=== PATIENT | female | born 1950 | race Caucasian/White ===

== ENCOUNTER → 2017-11-05 | Outpatient (CLI) | payer MEDICARE, OTHER ==
[~2017-11-05] MED LIST: ALBU90OI INH; ALPR.5 PO; ALPR1 PO; ATOR20 PO; Acetaminophen-1 EAC1 PO; Antivert25 MG PO; BUPR100ER PO; CEPH500 PO; CIPR500 PO; CITA20 PO; CYCL10 PO; Cymbalta60 MG; DULOXETINE HCL20 MG PO; Desyrel50 MG PO; ESOM20; ESOM20 PO; GABA600; GABA600 PO; HYDR1TAB94 PO; Hydrocodone-Ap1 EA23 PO; IBUP800 PO; LIDO700A20 TOP; MECL25 PO; MELO7.5 PO; METR500 PO; MIRT15 PO; Nexium40 MG PO; Nitrostat0.4 MG SL; Norco 5-325 Ta1 EACH PO; OLME20 PO; OLME5TAB; OLME5TAB PO; OXYACE7.5T MT; PRAHYD1AE TOP; PROC5 PO; PROM25 PO; Phenergan25 M1 PO; Prednisone20 MG PO; Prilosec20 MG PO; SUCR1 PO; SULI150 PO; Seroquel50 MG PO; TRAM50 PO; TRAZ100 PO; TRAZ150T57; TRAZ150T57 PO; Zofran8 MG PO
== END ==
LOC: LAB SRC 12:07
DX: R31.9 Hematuria, unspecified (principal); R30.0 Dysuria
CPT/HCPCS: 87077; 87086; 87186

== ENCOUNTER 2017-11-20 09:20 | Observation (INO) | payer MEDICARE, OTHER ==
[~2017-11-20] VITALS: Ht 165.1 cm; Wt 117.9 kg
[~2017-11-20 09:20] MED LIST changes: -ALPR1 PO; -Acetaminophen-1 EAC1 PO; -BUPR100ER PO; -CIPR500 PO; -Hydrocodone-Ap1 EA23 PO; -METR500 PO; -Seroquel50 MG PO; -TRAM50 PO; -TRAZ150T57 PO
[2017-11-20] MEDS ORDERED: Acetaminophen-1 EAC1 PO (11:02)
[2017-11-20] MEDS ORDERED: TRAM50 PO (11:03)
[2017-11-20] MEDS ORDERED: BUPR100ER PO (11:03)
[2017-11-20 11:55] LABS: Source, Urine Voided
[2017-11-20 12:01] LABS: BASOPHILS ABSOLUTE AUTO 0.03 K/mm3 (0.00-0.23); BASOPHILS PERCENT AUTO 0 % (0-2); EOSINOPHILS ABSOLUTE AUTO 0.09 K/mm3 (0.00-0.68); EOSINOPHILS PERCENT AUTO 1 % (0-6); Hematocrit 40.5 % (33.0-51.0); Hemoglobin 13.5 g/dL (11.5-16.0); IMMATURE GRAN ABSOLUTE AUTO 0.02 K/mm3 (0.00-0.10); IMMATURE GRAN PERCENT AUTO 0 % (0-1); LYMPHOCYTES ABSOLUTE AUTO 1.81 K/mm3 (0.84-5.20); LYMPHOCYTES PERCENT AUTO 27 % (21-46); MONOCYTES PERCENT AUTO 6 % (4-13); Mean Corpuscular HGB 29.2 pg (26.0-34.0); Mean Corpuscular HGB Conc 33.3 g/dL (31.5-36.5); Mean Corpuscular Volume 88 fL (80-100); NEUTROPHILS ABSOLUTE AUTO 4.41 K/mm3 (1.96-9.15); NEUTROPHILS PERCENT AUTO 65 % (41-73); Platelet Count 246 K/mm3 (150-400); RDW Coefficient Variation 14.7 % (11.7-14.2); RDW Standard Deviation 47.2 fL (35.1-46.3); Red Blood Cell Count 4.63 M/mm3 (3.80-5.20); White Blood Cell Count 6.76 K/mm3 (4.00-11.30)
[2017-11-20 12:25] LABS: Alanine Aminotransfer (ALT/SGP 13 U/L (12-78); Albumin, Blood 3.2 g/dL (3.4-5.0); Albumin/Globulin Ratio 0.8 (0.8-1.8); Alk Phos 128 U/L (50-136); Anion Gap 5 mmol/L (6-16); Aspartate Aminotrans (AST/SGOT 12 U/L (12-37); Bilirubin, Total 0.3 mg/dL (0.1-1.0); Blood Urea Nitrogen 10 mg/dL (8-24); Bun/Creatinine Ratio 11.2 (12.0-20.0); CO2, Blood 27 mmol/L (21-32); Chloride, Blood 110 mmol/L (98-108); Creatinine, Blood 0.89 mg/dL (0.40-1.00); Ethanol (Alcohol), Blood, Med <3 mg/dL; Glomerular Filtration Rate >60 (60-); Glucose, Blood 112 mg/dL (70-99); Potassium, Blood 3.5 mmol/L (3.5-5.5); Salicylate 3.3 mg/dL (2.8-20.0); Sodium, Blood 142 mmol/L (136-145); Total Protein, Blood 7.2 g/dL (6.4-8.2)
[2017-11-20 12:30] LABS: Acetaminophen, Random <2.0 ug/mL (10.0-30.0)
[2017-11-20 12:39] LABS: Bilirubin, Urine Neg (Neg); Blood, Urine Neg (Neg); Glucose Qualitative, Urine Neg (Neg); Ketones, Urine 1+ (Neg); Leukocyte Esterase, Urine 3+ (Neg); Nitrite, Urine Neg (Neg); Protein, Urine 1+ (Neg); Urobilinogen, Urine 1+ (Normal)
[2017-11-20 12:53] LABS: U Benzodiazapine Screen DETECTED; U Opiates Screen DETECTED
[2017-11-20 12:54] LABS: U Amphetamine Screen Not Detected; U Barbituate Screen Not Detected; U Buprenorphine Screen Not Detected; U Cannabinoids Screen Not Detected; U Cocaine Screen Not Detected; U Methadone Screen Not Detected; U Methamphetamine Screen Not Detected; U Oxycodone Screen Not Detected; U Phencyclidine Screen Not Detected; U Propoxyphene Screen Not Detected
[2017-11-20 12:55] LABS: Appearance, Urine Clear (Clear); Color, Urine Yellow (P-Yellow)
[2017-11-20 13:00] LABS: Bacteria Mod /hpf; Red Blood Cells, Urine 0-2 /hpf (0-2); Squamous Epithelial Cells Mod /hpf (Few)
[2017-11-20 13:04] LABS: Calcium Oxalate Crystals Mod /hpf
[2017-11-20] MEDS ORDERED: Hydrocodone-Ap1 EA23 PO (15:12)
[2017-11-20] MEDS ORDERED: GABA600 PO (15:13)
[2017-11-20] MEDS ORDERED: ALPR1 PO (15:13)
[2017-11-20] MEDS ORDERED: ATOR20 PO (15:14)
[2017-11-20] MEDS ORDERED: OLME20 PO (15:15)
[2017-11-20] MEDS ORDERED: OLME5TAB PO (15:16)
[2017-11-20] MEDS ORDERED: PROM25 PO (16:05)
[2017-11-20] MEDS ORDERED: TRAZ150T57 PO (16:05)
[2017-11-20] MEDS ORDERED: ESOM20 PO (16:06)
[2017-11-21] MEDS ORDERED: Seroquel50 MG PO (16:55)
== END 2017-11-20 19:09 | disposition home or self-care (01) ==
LOC: ER 09:20 → EOR 09:21
PROVIDERS: Emergency Medicine
DX: F32.9 Major depressive disorder, single episode, unspecified (principal); F43.9 Reaction to severe stress, unspecified; F41.9 Anxiety disorder, unspecified; I10 Essential (primary) hypertension; G89.29 Other chronic pain; K21.9 Gastro-esophageal reflux disease without esophagitis; G47.30 Sleep apnea, unspecified; F17.210 Nicotine dependence, cigarettes, uncomplicated; Z91.5 Personal history of self-harm; Z88.5 Allergy status to narcotic agent; Z60.9 Problem related to social environment, unspecified; Z88.8 Allergy status to other drugs, medicaments and biological substances; Z79.899 Other long term (current) drug therapy
CPT/HCPCS: 36415; 80053; 81001; 81025; 84443; 85025; 87086; 99285; G0378; G0480; Q3014

== ENCOUNTER 2017-11-21 15:06 | Emergency (ER) | payer MEDICARE, OTHER ==
[~2017-11-21] VITALS: Ht 165.1 cm; Wt 72.6 kg
[~2017-11-21 15:06] MED LIST changes: +ALPR1 PO; +Acetaminophen-1 EAC1 PO; +BUPR100ER PO; +Hydrocodone-Ap1 EA23 PO; +TRAM50 PO; +TRAZ150T57 PO
[2017-11-21] MEDS ORDERED: Seroquel50 MG PO (16:55)
== END 2017-11-21 17:13 | disposition home or self-care (01) ==
LOC: ER 15:06
DX: F41.9 Anxiety disorder, unspecified (principal); F43.9 Reaction to severe stress, unspecified; I10 Essential (primary) hypertension; K21.9 Gastro-esophageal reflux disease without esophagitis; F17.210 Nicotine dependence, cigarettes, uncomplicated
CPT/HCPCS: 99283

== ENCOUNTER → 2018-02-22 | Outpatient (CLI) | payer MEDICARE, OTHER ==
[~2018-02-22] MED LIST changes: +Seroquel50 MG PO
== END ==
LOC: LAB SHORT 15:54 → LAB 15:54
DX: N39.0 Urinary tract infection, site not specified (principal)
CPT/HCPCS: 87086

== ENCOUNTER 2018-04-17 11:58 | Emergency (ER) | payer MEDICARE, OTHER ==
[~2018-04-17] VITALS: Ht 165.1 cm; Wt 77.1 kg
[2018-04-17] MEDS ORDERED: CIPR500 PO (12:11)
[2018-04-17] MEDS ORDERED: METR500 PO (12:11)
[2018-04-17 12:24] LABS: BASOPHILS ABSOLUTE AUTO 0.02 K/mm3 (0.00-0.23); BASOPHILS PERCENT AUTO 0 % (0-2); EOSINOPHILS ABSOLUTE AUTO 0.22 K/mm3 (0.00-0.68); EOSINOPHILS PERCENT AUTO 3 % (0-6); Hematocrit 42.5 % (33.0-51.0); Hemoglobin 14.4 g/dL (11.5-16.0); IMMATURE GRAN ABSOLUTE AUTO 0.01 K/mm3 (0.00-0.10); IMMATURE GRAN PERCENT AUTO 0 % (0-1); LYMPHOCYTES ABSOLUTE AUTO 1.94 K/mm3 (0.84-5.20); LYMPHOCYTES PERCENT AUTO 26 % (21-46); MONOCYTES ABSOLUTE AUTO 0.55 K/mm3 (0.16-1.47); MONOCYTES PERCENT AUTO 7 % (4-13); Mean Corpuscular HGB 29.9 pg (26.0-34.0); Mean Corpuscular HGB Conc 33.9 g/dL (31.5-36.5); Mean Corpuscular Volume 88 fL (80-100); Mean Platelet Volume 11.4 fL (9.1-12.4); NEUTROPHILS ABSOLUTE AUTO 4.65 K/mm3 (1.96-9.15); NEUTROPHILS PERCENT AUTO 63 % (41-73); Platelet Count 241 K/mm3 (150-400); RDW Coefficient Variation 14.1 % (11.7-14.2); Red Blood Cell Count 4.82 M/mm3 (3.80-5.20); White Blood Cell Count 7.39 K/mm3 (4.00-11.30)
[2018-04-17 12:40] LABS: Alanine Aminotransfer (ALT/SGP 25 U/L (12-78); Albumin, Blood 3.4 g/dL (3.4-5.0); Albumin/Globulin Ratio 0.8 (0.8-1.8); Alk Phos 146 U/L (50-136); Anion Gap 10 mmol/L (6-16); Aspartate Aminotrans (AST/SGOT 25 U/L (12-37); Bilirubin, Total 0.2 mg/dL (0.1-1.0); Blood Urea Nitrogen 14 mg/dL (8-24); Bun/Creatinine Ratio 18.1 (12.0-20.0); CO2, Blood 22 mmol/L (21-32); Calcium, Blood 8.8 mg/dL (8.5-10.1); Chloride, Blood 112 mmol/L (98-108); Creatinine, Blood 0.78 mg/dL (0.40-1.00); Glomerular Filtration Rate >60 (60-); Glucose, Blood 94 mg/dL (70-99); Potassium, Blood 3.6 mmol/L (3.5-5.5); Sodium, Blood 144 mmol/L (136-145); Total Protein, Blood 7.4 g/dL (6.4-8.2); Troponin I <0.015 ng/mL (0.000-0.040)
== END 2018-04-17 14:55 | disposition home or self-care (01) ==
LOC: ER 11:58
PROVIDERS: Emergency Medicine
DX: R07.9 Chest pain, unspecified (principal); R61 Generalized hyperhidrosis; T37.8X5A Adverse effect of other specified systemic anti-infectives and antiparasitics, initial encounter; K21.9 Gastro-esophageal reflux disease without esophagitis; I10 Essential (primary) hypertension; I25.2 Old myocardial infarction; F17.210 Nicotine dependence, cigarettes, uncomplicated; Z88.8 Allergy status to other drugs, medicaments and biological substances; Z88.5 Allergy status to narcotic agent; Z79.899 Other long term (current) drug therapy
CPT/HCPCS: 71046; 80053; 83690; 84484; 85025; 93005; 93010; 99285-25

== ENCOUNTER → 2018-07-16 | Outpatient (CLI) | payer MEDICARE, OTHER ==
[~2018-07-16] MED LIST changes: +CIPR500 PO; +METR500 PO
== END | disposition home or self-care (01) ==
LOC: LAB EV 08:32 → LAB SHORT 08:32
DX: N39.0 Urinary tract infection, site not specified (principal)
CPT/HCPCS: 87086

== ENCOUNTER → 2018-10-28 | Outpatient (CLI) | payer MEDICARE, OTHER ==
[2018-11-02 07:14] LABS: AMITRIPTYLINE Negative (Cutoff=100); CLOMIPRAMINE Negative (Cutoff=100); CYCLOBENZAPRINE Positive (.); CYCLOBENZAPRINE CONF 108 ng/mL (Cutoff=100); DESIPRAMINE Negative (Cutoff=100); DOXEPIN Negative (Cutoff=100); IMIPRAMINE Negative (Cutoff=100); NORDOXEPIN Negative (Cutoff=100); NORTRIPTYLINE Negative (Cutoff=100); PROTRIPTYLINE Negative (Cutoff=100); TRICYCLIC ANTIDEP Positive ng/mL (Cutoff=100); TRIMIPRAMINE Negative (Cutoff=100)
== END | disposition home or self-care (01) ==
LOC: LAB SHORT 13:16 → LAB 13:16
PROVIDERS: Nurse Practitioner Psychiatric/Mental Health
DX: F34.1 Dysthymic disorder (principal); Z79.899 Other long term (current) drug therapy
CPT/HCPCS: 80369; G0480; G0481

== ENCOUNTER 2019-01-09 09:55 | Emergency (ER) | payer MEDICARE, OTHER ==
[~2019-01-09] VITALS: Ht 165.1 cm; Wt 74.8 kg
[2019-01-09] MEDS ORDERED: TELM40 PO (10:07)
[2019-01-09 10:41] LABS: BASOPHILS ABSOLUTE AUTO 0.03 K/mm3 (0.00-0.23); BASOPHILS PERCENT AUTO 0 % (0-2); EOSINOPHILS ABSOLUTE AUTO 0.12 K/mm3 (0.00-0.68); EOSINOPHILS PERCENT AUTO 2 % (0-6); Hematocrit 46.1 % (33.0-51.0); Hemoglobin 15.2 g/dL (11.5-16.0); IMMATURE GRAN ABSOLUTE AUTO 0.01 K/mm3 (0.00-0.10); IMMATURE GRAN PERCENT AUTO 0 % (0-1); LYMPHOCYTES ABSOLUTE AUTO 2.17 K/mm3 (0.84-5.20); LYMPHOCYTES PERCENT AUTO 31 % (21-46); MONOCYTES PERCENT AUTO 7 % (4-13); Mean Corpuscular HGB 30.2 pg (26.0-34.0); Mean Corpuscular Volume 92 fL (80-100); Mean Platelet Volume 11.9 fL (9.1-12.4); NEUTROPHILS ABSOLUTE AUTO 4.08 K/mm3 (1.96-9.15); NEUTROPHILS PERCENT AUTO 59 % (41-73); Platelet Count 218 K/mm3 (150-400); RDW Coefficient Variation 13.8 % (11.7-14.2); RDW Standard Deviation 46.5 fL (35.1-46.3); Red Blood Cell Count 5.03 M/mm3 (3.80-5.20); White Blood Cell Count 6.91 K/mm3 (4.00-11.30)
[2019-01-09 10:52] LABS: Alanine Aminotransfer (ALT/SGP 20 U/L (12-78); Albumin, Blood 3.5 g/dL (3.4-5.0); Albumin/Globulin Ratio 0.9 (0.8-1.8); Alk Phos 175 U/L (50-136); Anion Gap 6 mmol/L (6-16); Aspartate Aminotrans (AST/SGOT 26 U/L (12-37); Bilirubin, Total 0.4 mg/dL (0.1-1.0); Blood Urea Nitrogen 17 mg/dL (8-24); Bun/Creatinine Ratio 22.4 (12.0-20.0); CO2, Blood 24 mmol/L (21-32); Calcium, Blood 9.1 mg/dL (8.5-10.1); Chloride, Blood 113 mmol/L (98-108); Creatinine, Blood 0.76 mg/dL (0.40-1.00); Globulin, Blood 3.9 g/dL (2.2-4.0); Glomerular Filtration Rate >60 (60-); Glucose, Blood 89 mg/dL (70-99); Potassium, Blood 3.7 mmol/L (3.5-5.5); Sodium, Blood 143 mmol/L (136-145); Total Protein, Blood 7.4 g/dL (6.4-8.2)
[2019-01-09] MEDS ORDERED: Prinivil5 MG PO (11:23)
== END 2019-01-09 11:50 | disposition home or self-care (01) ==
LOC: ER 09:55
PROVIDERS: Emergency Medicine
DX: R42 Dizziness and giddiness (principal); R06.02 Shortness of breath; I10 Essential (primary) hypertension; T46.5X5A Adverse effect of other antihypertensive drugs, initial encounter; K21.9 Gastro-esophageal reflux disease without esophagitis; I25.2 Old myocardial infarction; Z88.5 Allergy status to narcotic agent; Z88.8 Allergy status to other drugs, medicaments and biological substances; Z79.899 Other long term (current) drug therapy; Z79.891 Long term (current) use of opiate analgesic
CPT/HCPCS: 36415; 80053; 84484; 85025; 93005; 93010; 99284-25

== ENCOUNTER → 2020-02-19 | Outpatient (CLI) | payer MEDICARE, OTHER ==
[~2020-02-19] MED LIST changes: +CEFD300 PO; +CEFP200 PO; +CODACE30 PO; +GABA300 PO; +MIRT30ST PO; +ONDA4ODT MM; +Prinivil5 MG PO; +TELM40 PO; +ZOLP5 PO
[2020-02-19 16:28] LABS: Alanine Aminotransfer (ALT/SGP 20 U/L (12-78); Albumin, Blood 3.5 g/dL (3.4-5.0); Albumin/Globulin Ratio 0.9 (0.8-1.8); Alk Phos 158 U/L (50-136); Anion Gap 5 mmol/L (6-16); Aspartate Aminotrans (AST/SGOT 31 U/L (12-37); Bilirubin, Total 0.3 mg/dL (0.1-1.0); Blood Urea Nitrogen 12 mg/dL (8-24); Bun/Creatinine Ratio 13.2 (12.0-20.0); CHOL/HDL RATIO 3.4; CO2, Blood 20 mmol/L (21-32); Chloride, Blood 116 mmol/L (98-108); Cholesterol 170 mg/dL (50-200); Creatinine, Blood 0.91 mg/dL (0.40-1.00); Glomerular Filtration Rate >60 (60-); Glucose, Blood 95 mg/dL (70-99); HDL Cholesterol 50 mg/dL (>39); LDL/HDL RATIO 1.6; Low Density Lipoprotein Chol 81 mg/dL (0-110); Potassium, Blood 4.8 mmol/L (3.5-5.5); Sodium, Blood 141 mmol/L (136-145); Total Protein, Blood 7.5 g/dL (6.4-8.2); Triglycerides 194 mg/dL (30-160); Very Low Density Lipoprot Chol 38 mg/dL (6-32)
== END | disposition home or self-care (01) ==
LOC: LAB SRC 07:33 → LAB SHORT 07:33
PROVIDERS: Nurse Practitioner Family
DX: E78.2 Mixed hyperlipidemia (principal); M25.50 Pain in unspecified joint
CPT/HCPCS: 80053; 80061

== ENCOUNTER 2020-05-16 11:08 | Observation (INO) | payer MEDICARE, OTHER ==
[~2020-05-16] VITALS: Ht 165.1 cm; Wt 72.1 kg
[~2020-05-16 11:08] MED LIST changes: +ALPR.25 PO; +ATORVASTATIN CA40 M1 PO
[2020-05-16 11:29] LABS: BASOPHILS ABSOLUTE AUTO 0.02 K/mm3 (0.00-0.23); BASOPHILS PERCENT AUTO 0 % (0-2); EOSINOPHILS ABSOLUTE AUTO 0.15 K/mm3 (0.00-0.68); EOSINOPHILS PERCENT AUTO 2 % (0-6); Hematocrit 43.3 % (33.0-51.0); Hemoglobin 14.5 g/dL (11.5-16.0); IMMATURE GRAN ABSOLUTE AUTO 0.01 K/mm3 (0.00-0.10); IMMATURE GRAN PERCENT AUTO 0 % (0-1); LYMPHOCYTES ABSOLUTE AUTO 2.25 K/mm3 (0.84-5.20); LYMPHOCYTES PERCENT AUTO 34 % (21-46); MONOCYTES ABSOLUTE AUTO 0.49 K/mm3 (0.16-1.47); MONOCYTES PERCENT AUTO 7 % (4-13); Mean Corpuscular HGB 30.5 pg (26.0-34.0); Mean Corpuscular HGB Conc 33.5 g/dL (31.5-36.5); Mean Corpuscular Volume 91 fL (80-100); Mean Platelet Volume 11.6 fL (9.1-12.4); NEUTROPHILS ABSOLUTE AUTO 3.76 K/mm3 (1.96-9.15); NEUTROPHILS PERCENT AUTO 56 % (41-73); Platelet Count 216 K/mm3 (150-400); RDW Coefficient Variation 13.2 % (11.7-14.2); RDW Standard Deviation 45.1 fL (35.1-46.3); Red Blood Cell Count 4.75 M/mm3 (3.80-5.20); White Blood Cell Count 6.68 K/mm3 (4.00-11.30)
[2020-05-16 11:50] LABS: Alanine Aminotransfer (ALT/SGP 25 U/L (12-78); Albumin, Blood 3.1 g/dL (3.4-5.0); Albumin/Globulin Ratio 0.8 (0.8-1.8); Alk Phos 136 U/L (50-136); Anion Gap 5 mmol/L (6-16); Aspartate Aminotrans (AST/SGOT 13 U/L (12-37); Bilirubin, Total 0.3 mg/dL (0.1-1.0); Blood Urea Nitrogen 11 mg/dL (8-24); Bun/Creatinine Ratio 12.4 (12.0-20.0); CO2, Blood 24 mmol/L (21-32); Calcium, Blood 8.8 mg/dL (8.5-10.1); Chloride, Blood 114 mmol/L (98-108); Creatinine, Blood 0.88 mg/dL (0.40-1.00); Globulin, Blood 3.8 g/dL (2.2-4.0); Glomerular Filtration Rate >60 (60-); Glucose, Blood 98 mg/dL (70-99); Potassium, Blood 3.6 mmol/L (3.5-5.5); Sodium, Blood 143 mmol/L (136-145); Total Protein, Blood 6.9 g/dL (6.4-8.2); Troponin I <0.015 ng/mL (0.000-0.040)
[2020-05-16] MEDS ORDERED: NEURONTIN300 MG PO (12:26)
[2020-05-16] MEDS ORDERED: PANTOPRAZOLE SO40 M2 PO (12:27)
[2020-05-16] MEDS ORDERED: Buspirone HCl5 MG PO (12:28)
[2020-05-16] MEDS ORDERED: GABA100 PO (12:28)
[2020-05-16] MEDS ORDERED: IBUP600 PO (12:30)
--- NOTE | 2020-05-16 18:45 | NUR ---
SUMMARY PT ADMITTED TO THE FLOOR FROM THE ER, SHE IS A&O X4, DENIES CP/PRESSURE, VSS, ON RA, VOIDING WNL, TOLERATING PO INTAKE. NS @ 75 ML/HR INFUSING PER EMAR. NSR PER BEADING INSTALLER. PT ORIENTED TO THE ROOM, CALL LIGHT IN REACH, WCTM & REPORT TO THE NOC RN.
[2020-05-17 04:28] LABS: Hematocrit 42.7 % (33.0-51.0); Hemoglobin 14.3 g/dL (11.5-16.0); Mean Corpuscular HGB 30.3 pg (26.0-34.0); Mean Corpuscular HGB Conc 33.5 g/dL (31.5-36.5); Mean Corpuscular Volume 91 fL (80-100); Mean Platelet Volume 11.5 fL (9.1-12.4); Platelet Count 187 K/mm3 (150-400); RDW Coefficient Variation 13.2 % (11.7-14.2); RDW Standard Deviation 43.8 fL (35.1-46.3); Red Blood Cell Count 4.72 M/mm3 (3.80-5.20); White Blood Cell Count 5.84 K/mm3 (4.00-11.30)
[2020-05-17 04:49] LABS: Anion Gap 3 mmol/L (6-16); Blood Urea Nitrogen 10 mg/dL (8-24); Bun/Creatinine Ratio 10.7 (12.0-20.0); CHOL/HDL RATIO 3.4; CO2, Blood 25 mmol/L (21-32); Calcium, Blood 8.3 mg/dL (8.5-10.1); Chloride, Blood 115 mmol/L (98-108); Cholesterol 134 mg/dL (50-200); Creatinine, Blood 0.94 mg/dL (0.40-1.00); Glomerular Filtration Rate >60 (60-); Glucose, Blood 94 mg/dL (70-99); HDL Cholesterol 39 mg/dL (>39); LDL/HDL RATIO 1.1; Low Density Lipoprotein Chol 44 mg/dL (0-110); Potassium, Blood 4.2 mmol/L (3.5-5.5); Sodium, Blood 143 mmol/L (136-145); Triglycerides 253 mg/dL (30-160); Very Low Density Lipoprot Chol 50 mg/dL (6-32)
--- NOTE | 2020-05-17 06:54 | NUR ---
SHIFT SUMMARY PT A&O; VSS; NO CARDIAC EVENTS NOTED ON TELE; CALLED TO CONTINUE HOME DOSE OF TRAZADONE AND REMERON; MEDS SUBSEQUENTLY ADDED TO EMAR; PT INDEPENDENT IN ROOM; CALL APPROPRIATELY; NO ACUTE DISTRESS NOTED; PT CONTINUES TO C/O CHRONIC NERVE PAIN; ATTEMPT MADE TO CALL ; WILL PASS ON TO DAY SHIFT RN TO ADD PT'S TYLENOL 3 BASELINE DOSE TO EMAR; CALL LIGHT IN REACH; BED IN LOWEST POSITION; REPORT GIVEN TO DAY SHIFT RN.
--- NOTE | 2020-05-17 13:41 | NUR ---
echocardiogram completed
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
[2020-05-18 04:11] LABS: Bun/Creatinine Ratio 13.2 (12.0-20.0); Calcium, Blood 8.5 mg/dL (8.5-10.1); Creatinine, Blood 0.99 mg/dL (0.40-1.00); Thyroid Stimulating Hormone 3.26 uIU/mL (0.360-4.800)
--- NOTE | 2020-05-18 05:16 | NUR ---
SHIFT SUMMARY- PT. A&O, PLEASANT AND COOPERATIVE WITH CARE. PT. HAD NO ACUTE EVENTS OVERNIGHT. SCHEDULED AND PRN MEDS GIVEN PER EMAR WITH GOOD EFFECT. PT. TOLERATED WELL. ASLEEP T/O MOST OF THE SHIFT. NO APPARENT DISTRESS NOTED. DENIED ANY NEEDS DURING THE NIGHT. VSS. SCHEDULED FOR 2ND PART OF STRESS TEST TODAY. CALL LIGHT WITHIN REACH AND SIDE RAILS UPX2. WILL CONT TO MONITOR.
--- NOTE | 2020-05-18 07:17 | NUR ---
ASSUMED PATIENT CARE. PATIENT AMBULATING INDEPENDENTLY IN ROOM, CONVERSING WITH NURSING STAFF. NO SIGNS OF ACUTE DISTRESS, WCTM.
[2020-05-18] MEDS ORDERED: ASPI81CH PO (17:31)
[2020-05-18] MEDS ORDERED: Acetaminophen325 M1 PO (17:31)
[2020-05-18] MEDS ORDERED: NICOTINE1 EAC1 TOP (17:32)
[2020-05-18] MEDS ORDERED: ONDA4ODT MM (17:34)
[2020-05-18] MEDS ORDERED: GAVILAX17 GM PO (17:37)
--- NOTE | 2020-05-18 17:53 | NUR ---
PATIENT PROVIDED DISCHARGE INFO REGARDING FOLLOW UP PLANS, REASONS TO RETURN TO THE HOSPITAL, MEDICATION INFO AND SMOKING CESSATION ENCOURAGEMENT. PATIENT VERBALIZED UNDERSTANDING, NO SIGNS OF ACUTE DISTRESS.
== END 2020-05-18 18:05 | disposition home or self-care (01) ==
LOC: ER 11:08 → ERHOLD 11:09 → PCU 11:09
PROVIDERS: Emergency Medicine; Family Medicine; Nurse Practitioner Acute Care; ADMIT Internal Medicine
DX: R07.89 Other chest pain (principal); F41.8 Other specified anxiety disorders; G89.29 Other chronic pain; M54.9 Dorsalgia, unspecified; K21.9 Gastro-esophageal reflux disease without esophagitis; E78.5 Hyperlipidemia, unspecified; I08.1 Rheumatic disorders of both mitral and tricuspid valves; I11.9 Hypertensive heart disease without heart failure; G47.33 Obstructive sleep apnea (adult) (pediatric); Z88.5 Allergy status to narcotic agent; Z88.8 Allergy status to other drugs, medicaments and biological substances; Z79.82 Long term (current) use of aspirin; Z79.899 Other long term (current) drug therapy; I25.10 Atherosclerotic heart disease of native coronary artery without angina pectoris; I25.2 Old myocardial infarction; F17.210 Nicotine dependence, cigarettes, uncomplicated
CPT/HCPCS: 36415; 71046; 78452; 80048; 80053; 80061; 83690; 83735; 84443; 84484; 85025; 85027; 93005; 93010; 93017; 93306; 96361; 96372; 96374; 96376; 99285-25; A9270; A9270-GY; A9500; G0378; J0706; J1650; J2405; J2785; J7030; J7120

== ENCOUNTER 2020-10-23 17:46 | Emergency (ER) | payer MEDICARE, OTHER ==
[~2020-10-23 17:46] MED LIST changes: +ASPI81CH PO; +Acetaminophen325 M1 PO; +Buspirone HCl5 MG PO; +GABA100 PO; +GAVILAX17 GM PO; +IBUP600 PO; +NEURONTIN300 MG PO; +NICOTINE1 EAC1 TOP; +PANTOPRAZOLE SO40 M2 PO
== END 2020-10-23 17:55 | disposition left against medical advice (07) ==
LOC: ER 17:46
DX: Z53.21 Procedure and treatment not carried out due to patient leaving prior to being seen by health care provider (principal)

== ENCOUNTER 2021-01-26 14:22 | Emergency (ER) | payer MEDICARE, OTHER ==
[~2021-01-26] VITALS: Ht 165.1 cm; Wt 77.1 kg
== END 2021-01-26 16:31 | disposition home or self-care (01) ==
LOC: ER 14:22
DX: S90.122A Contusion of left lesser toe(s) without damage to nail, initial encounter (principal); K21.9 Gastro-esophageal reflux disease without esophagitis; I10 Essential (primary) hypertension; E78.5 Hyperlipidemia, unspecified; F17.210 Nicotine dependence, cigarettes, uncomplicated; Z88.5 Allergy status to narcotic agent; Z88.8 Allergy status to other drugs, medicaments and biological substances; Z79.899 Other long term (current) drug therapy; W01.0XXA Fall on same level from slipping, tripping and stumbling without subsequent striking against object, initial encounter
CPT/HCPCS: 73630; 99283-25

== ENCOUNTER 2021-07-09 10:57 | Emergency (ER) | payer MEDICARE, OTHER ==
[~2021-07-09] VITALS: Ht 165.1 cm; Wt 71.2 kg
[2021-07-09 11:22] LABS: BASOPHILS ABSOLUTE AUTO 0.04 K/mm3 (0.00-0.23); BASOPHILS PERCENT AUTO 1 % (0-2); EOSINOPHILS ABSOLUTE AUTO 0.12 K/mm3 (0.00-0.68); EOSINOPHILS PERCENT AUTO 2 % (0-6); Hematocrit 42.3 % (33.0-51.0); Hemoglobin 14.3 g/dL (11.5-16.0); IMMATURE GRAN ABSOLUTE AUTO 0.02 K/mm3 (0.00-0.10); IMMATURE GRAN PERCENT AUTO 0 % (0-1); LYMPHOCYTES ABSOLUTE AUTO 1.75 K/mm3 (0.84-5.20); LYMPHOCYTES PERCENT AUTO 23 % (21-46); MONOCYTES ABSOLUTE AUTO 0.61 K/mm3 (0.16-1.47); MONOCYTES PERCENT AUTO 8 % (4-13); Mean Corpuscular HGB 30.6 pg (26.0-34.0); Mean Corpuscular HGB Conc 33.8 g/dL (31.5-36.5); Mean Corpuscular Volume 90 fL (80-100); Mean Platelet Volume 11.6 fL (9.1-12.4); NEUTROPHILS ABSOLUTE AUTO 5.12 K/mm3 (1.96-9.15); NEUTROPHILS PERCENT AUTO 67 % (41-73); Platelet Count 246 K/mm3 (150-400); RDW Coefficient Variation 13.2 % (11.7-14.2); RDW Standard Deviation 43.2 fL (35.1-46.3); Red Blood Cell Count 4.68 M/mm3 (3.80-5.20); White Blood Cell Count 7.66 K/mm3 (4.00-11.30)
[2021-07-09 11:39] LABS: Alanine Aminotransfer (ALT/SGP 20 U/L (12-78); Albumin, Blood 3.1 g/dL (3.4-5.0); Albumin/Globulin Ratio 0.7 (0.8-1.8); Alk Phos 151 U/L (50-136); Anion Gap 2 mmol/L (6-16); Aspartate Aminotrans (AST/SGOT 18 U/L (12-37); Bilirubin, Total 0.3 mg/dL (0.1-1.0); Blood Urea Nitrogen 12 mg/dL (8-24); Bun/Creatinine Ratio 13.5 (12.0-20.0); CO2, Blood 28 mmol/L (21-32); Calcium, Blood 9.1 mg/dL (8.5-10.1); Chloride, Blood 112 mmol/L (98-108); Creatinine, Blood 0.89 mg/dL (0.40-1.00); Globulin, Blood 4.2 g/dL (2.2-4.0); Glomerular Filtration Rate >60 (60-); Glucose, Blood 83 mg/dL (70-99); Potassium, Blood 3.6 mmol/L (3.5-5.5); Sodium, Blood 142 mmol/L (136-145); Total Protein, Blood 7.3 g/dL (6.4-8.2); Troponin I <0.015 ng/mL (0.000-0.040)
[2021-07-09 12:27] LABS: Source, Urine Clean Catch
[2021-07-09 12:53] LABS: Appearance, Urine Hazy (Clear); Color, Urine Yellow (P-Yellow); Glucose Qualitative, Urine Neg (Neg); Ketones, Urine Neg (Neg)
[2021-07-09 12:58] LABS: Bilirubin, Urine Neg (Neg); Blood, Urine Neg (Neg); Leukocyte Esterase, Urine 1+ (Neg); Nitrite, Urine Neg (Neg); Protein, Urine Neg (Neg); Urobilinogen, Urine NORM (Normal)
[2021-07-09] MEDS ORDERED: MECL25 PO (13:08)
[2021-07-09 13:11] LABS: Bacteria Rare /hpf; Red Blood Cells, Urine Rare /hpf (0-2); Squamous Epithelial Cells Rare /hpf (Few); White Blood Cells, Urine 0-2 /hpf (0-5)
== END 2021-07-09 13:36 | disposition home or self-care (01) ==
LOC: ER 10:57
PROVIDERS: Emergency Medicine
DX: H81.8X9 Other disorders of vestibular function, unspecified ear (principal); I99.8 Other disorder of circulatory system; I10 Essential (primary) hypertension; K21.9 Gastro-esophageal reflux disease without esophagitis; G47.30 Sleep apnea, unspecified; I25.2 Old myocardial infarction; E78.5 Hyperlipidemia, unspecified; M19.90 Unspecified osteoarthritis, unspecified site; F17.210 Nicotine dependence, cigarettes, uncomplicated; Z88.5 Allergy status to narcotic agent; Z88.8 Allergy status to other drugs, medicaments and biological substances; Z79.899 Other long term (current) drug therapy
CPT/HCPCS: 80053; 81001; 84484; 85025; 87086; 93005; 93010; 99284-25; A9270; J7030

== ENCOUNTER 2021-12-19 14:49 | Emergency (ER) | payer MEDICARE, OTHER ==
[~2021-12-19] VITALS: Ht 162.6 cm; Wt 72.6 kg
[~2021-12-19 14:49] MED LIST changes: +TRANSDERM-SCOP1 EAC1 TD
[2021-12-19] MEDS ORDERED: Phenergan25 M1 PO (15:13)
[2021-12-19] MEDS ORDERED: LAMOTRIGINE25 M4 PO (15:16)
[2021-12-19] MEDS ORDERED: IBUP600 PO (15:21)
[2021-12-19 17:38] LABS: Anion Gap 3 mmol/L (6-16); Blood Urea Nitrogen 13 mg/dL (8-24); Bun/Creatinine Ratio 17.1 (12.0-20.0); CO2, Blood 26 mmol/L (21-32); Calcium, Blood 9.6 mg/dL (8.5-10.1); Chloride, Blood 112 mmol/L (98-108); Creatinine, Blood 0.76 mg/dL (0.40-1.00); Glomerular Filtration Rate >60 (60-); Glucose, Blood 115 mg/dL (70-99); Potassium, Blood 3.6 mmol/L (3.5-5.5); Sodium, Blood 141 mmol/L (136-145)
== END 2021-12-19 19:50 | disposition home or self-care (01) ==
LOC: ER 14:49
PROVIDERS: Student in an Organized Health Care Education/Training Program
DX: S16.1XXA Strain of muscle, fascia and tendon at neck level, initial encounter (principal); R51.9 Headache, unspecified; R07.9 Chest pain, unspecified; Z88.5 Allergy status to narcotic agent; Z88.8 Allergy status to other drugs, medicaments and biological substances; Z79.899 Other long term (current) drug therapy; Z79.82 Long term (current) use of aspirin; X58.XXXA Exposure to other specified factors, initial encounter; K21.9 Gastro-esophageal reflux disease without esophagitis; I10 Essential (primary) hypertension; G47.30 Sleep apnea, unspecified; E78.5 Hyperlipidemia, unspecified; F17.210 Nicotine dependence, cigarettes, uncomplicated
CPT/HCPCS: 36415; 70450; 70496; 70498; 71046; 80048; 84484; 93005; 93010; 96365; 96375; 99285-25; J1200; J1885; J2765; J3475; Q9967

== ENCOUNTER 2021-12-20 12:07 | Observation (INO) | payer MEDICARE, OTHER ==
[~2021-12-20] VITALS: Ht 170.2 cm; Wt 73.6 kg
[~2021-12-20 12:07] MED LIST changes: -GAVILAX17 GM PO; +LAMOTRIGINE25 M4 PO; +MIRALAX17 GM PO
[2021-12-20 12:50] LABS: BASOPHILS ABSOLUTE AUTO 0.02 K/mm3 (0.00-0.23); BASOPHILS PERCENT AUTO 0 % (0-2); EOSINOPHILS ABSOLUTE AUTO 0.02 K/mm3 (0.00-0.68); EOSINOPHILS PERCENT AUTO 0 % (0-6); Hematocrit 41.6 % (33.0-51.0); Hemoglobin 14.3 g/dL (11.5-16.0); IMMATURE GRAN ABSOLUTE AUTO 0.04 K/mm3 (0.00-0.10); IMMATURE GRAN PERCENT AUTO 1 % (0-1); LYMPHOCYTES ABSOLUTE AUTO 0.91 K/mm3 (0.84-5.20); LYMPHOCYTES PERCENT AUTO 11 % (21-46); MONOCYTES ABSOLUTE AUTO 0.44 K/mm3 (0.16-1.47); MONOCYTES PERCENT AUTO 5 % (4-13); Mean Corpuscular HGB 31.1 pg (26.0-34.0); Mean Corpuscular HGB Conc 34.4 g/dL (31.5-36.5); Mean Corpuscular Volume 90 fL (80-100); Mean Platelet Volume 12.1 fL (9.1-12.4); NEUTROPHILS PERCENT AUTO 83 % (41-73); Platelet Count 209 K/mm3 (150-400); RDW Coefficient Variation 13.6 % (11.7-14.2); RDW Standard Deviation 45.4 fL (35.1-46.3); White Blood Cell Count 8.23 K/mm3 (4.00-11.30)
[2021-12-20 12:54] LABS: pH Blood Venous 7.38 (7.34-7.37)
[2021-12-20 12:55] LABS: Base Excess Venous -1.6 mmol/L; Bicarbonate Venous 23.2 mmol/L (24.0-30.0); PCO2 Venous 39.8 mmHg (38-42)
[2021-12-20 13:10] LABS: Acetaminophen, Random <2.0 ug/mL (10.0-30.0); Ethanol (Alcohol), Blood, Med <3 mg/dL; Salicylate 4.5 mg/dL (2.8-20.0)
[2021-12-20 13:11] LABS: Alanine Aminotransfer (ALT/SGP 17 U/L (12-78); Albumin, Blood 3.8 g/dL (3.4-5.0); Albumin/Globulin Ratio 1.1 (0.8-1.8); Alk Phos 137 U/L (50-136); Anion Gap 6 mmol/L (6-16); Aspartate Aminotrans (AST/SGOT 21 U/L (12-37); Bilirubin, Total 0.4 mg/dL (0.1-1.0); Blood Urea Nitrogen 18 mg/dL (8-24); Bun/Creatinine Ratio 22.8 (12.0-20.0); CO2, Blood 24 mmol/L (21-32); Calcium, Blood 9.2 mg/dL (8.5-10.1); Chloride, Blood 109 mmol/L (98-108); Creatinine, Blood 0.79 mg/dL (0.40-1.00); Globulin, Blood 3.5 g/dL (2.2-4.0); Glomerular Filtration Rate >60 (60-); Glucose, Blood 166 mg/dL (70-99); Potassium, Blood 3.2 mmol/L (3.5-5.5); Sodium, Blood 139 mmol/L (136-145); Total Protein, Blood 7.3 g/dL (6.4-8.2)
[2021-12-20 13:20] LABS: Source, Urine Straight Cath
[2021-12-20 13:57] LABS: Appearance, Urine Clear (Clear); Bilirubin, Urine Neg (Neg); Blood, Urine Neg (Neg); Color, Urine Yellow (P-Yellow); Glucose Qualitative, Urine Neg (Neg); Ketones, Urine 3+ (Neg); Leukocyte Esterase, Urine 1+ (Neg); Nitrite, Urine Neg (Neg); Protein, Urine 2+ (Neg); Urobilinogen, Urine 3+ (Normal)
[2021-12-20 14:08] LABS: Bacteria Many /hpf; Mucus Heavy (0-Heavy); Red Blood Cells, Urine 0-2 /hpf (0-2); Squamous Epithelial Cells Rare /hpf (Few)
[2021-12-20 14:14] LABS: U Amphetamine Screen Not Detected; U Barbituate Screen Not Detected; U Benzodiazapine Screen Not Detected; U Cocaine Screen Not Detected; U Methadone Screen Not Detected; U Methamphetamine Screen DETECTED
[2021-12-20 14:15] LABS: U Buprenorphine Screen Not Detected; U Cannabinoids Screen Not Detected; U Opiates Screen DETECTED; U Oxycodone Screen Not Detected; U Phencyclidine Screen Not Detected; U Propoxyphene Screen Not Detected
--- NOTE | 2021-12-20 23:21 | NUR ---
POISON CONTROL 2319 SPOKE WITH PC. UPDATED ON MOST RECENT VS, LABS, QTC 0.48, EKG ORDERS X4, AND PATIENT STATUS. POISON CONTROL GIVES NO NEW SUGGESTION AT THIS TIME. WILL CALL FOR UPDATE AGAIN AROUND [phone].
[2021-12-21 05:08] LABS: Anion Gap 5 mmol/L (6-16); Blood Urea Nitrogen 13 mg/dL (8-24); Bun/Creatinine Ratio 16.9 (12.0-20.0); CO2, Blood 21 mmol/L (21-32); Calcium, Blood 8.2 mg/dL (8.5-10.1); Chloride, Blood 118 mmol/L (98-108); Creatinine, Blood 0.77 mg/dL (0.40-1.00); Glomerular Filtration Rate >60 (60-); Glucose, Blood 123 mg/dL (70-99); Potassium, Blood 4.3 mmol/L (3.5-5.5); Salicylate 3.4 mg/dL (2.8-20.0); Sodium, Blood 144 mmol/L (136-145)
--- NOTE | 2021-12-21 05:41 | NUR ---
SHIFT SUMMARY ASSUMED CARE OF PT AT 2034. PT LETHARGIC THROUGHOUT THE NIGHT, MORE AWAKE THIS AM. ALERT AND ORIENTED X4. AFEBRILE. BP STABLE. HR SR 80-90'S. QTC 480MS IN MOST RECENT EKG. STATES THAT SHE NEVER WANTS TO TAKE PILLS LIKE THAT AND GO THROUGH THIS AGAIN. C/O NAUSEA. RELIEF WITH 10MG REGLAN. FREQUENT URINATION AND NEED TO GO TO THE BATHROOM THROUGHOUT NIGHT. MOSTLY USING BEDPAN DUE TO WEAKNESS, ABLE TO GET UP TO BEDSIDE COMMODE WITH X1 MODERATE ASSIST. IN BED RESTING WITH SITTER BY SIDE. WILL CONTINUE TO MONITOR UNTIL REPORT GIVEN TO DAYSHIFT RN
--- NOTE | 2021-12-21 09:13 | NUR ---
ASSUMPTION OF CARE: ON INTITIAL OBSERVATION OF PATIENT. PATIENT RESTING, IV INFUSING WITH NS AT 125 FOR X 1 BAG, PATIENT IN NO ACUTE STRESS OR DISCOMFORT. RN SITTING AT BEDSIDE SITTER. BP THROUGH THE NIGHT HAVE BEEN TRENDING TO A MORE NORMAL FOR PATIENT, SERIAL EKG'S ORDERED. WILL CONTINUE TO MONITOR.
--- NOTE | 2021-12-21 10:30 | NUR ---
PT RESTING QUIETLY IN BED, NO SIGNS OF ACUTE DISTRESS. PT IS AGREEABLE AND COOPERATIVE WITH CARE. VSS, TELEMETRY IN PLACE. PT IN NSR PER TENNIS COACH. THIS RN AGREES WITH THE LAST SHIFT ASSESSMENT DOCUMENTATION.
--- NOTE | 2021-12-21 10:30 | NUR ---
ASSUMED PATIENT CARE.
--- NOTE | 2021-12-21 10:31 | NUR ---
POISON CONTROL: SPOKE WITH THE PHARMACIST FROM POISON CONTROL. NO FURTHER NEED FOR SALICYLATES DUE TO REACHING 3.4. QTC IMPROVING FROM AM 480->474. CONTINUE SUPPORTIVE CARE. THEY PLAN TO CONTACT TONIGHT OR TOMORROW MORNING.
--- NOTE | 2021-12-21 10:35 | NUR ---
TRANSFER OF CARE: MICHAEL RN ASSUMING CARE OF PATIENT. PATIENT THANKFUL FOR CARE, IS IN NO SIGN OF DISTRESS AND DENIES ANY CHEST PAIN, ON RA, AFEBRILE, SUPPORTIVE CARE. DR SANTOS TO CONSULT STILL, HOSPITALIST HAVE SEEN THE PATIENT, PATIENT HAD MULTIPLE BM'S, HAS BEEN A 1 ASSIST TO BSC. RECEIVING RN HAD NO FURTHER QUESTIONS COMMENTS OR CONCERNS AT THIS TIME. PATIENT AWARE OF SITUATION AND DOES NOT HAVE CONCERNS AT THIS TIME.
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
--- NOTE | 2021-12-21 14:36 | NUR ---
ASSUMPTION OF CARE: THIS RN ASSUMED CARE AT 1430. PATIENT ALERT AND ORIENTED X4. PERRLA. ABLE TO MOVE ALL EXTREMITIES. DENIES NUMBNESS/TINGLNIG. PERRLA. ABLE TO STAND AND TRANSFER TO [facility] WITH ONE PERSON ASSIST. ON ROOM AIR SATING MID 90'S. TELE SHOWING SINUS RHYTHM. DENIES CHEST PAIN/PRESSURE. EKG COMPLETED AT 0800 AND 1200 THIS SHIFT. QTC IMPROVING. FLUIDS COMPLETED. PATIENT SALINE LOCKED. COMPLAINS OF NAUSEA, IMPROVING WITH SCHEDULED MERINOL. REPORTS URGENCY WITH MULTIPLE SOFT/LOOSE BOWEL MOVEMENTS THIS SHIFT. STOOL SAMPLE RESULTS PENDING. LIDIA ORTEGA SITTING AT BEDSIDE. WILL CONTINUE TO MONITOR.
--- NOTE | 2021-12-21 14:37 | NUR ---
RELINQUISHED PATIENT CARE. REPORT GIVEN TO PATRICIA VIERA. NO ACUTE EVENTS, VSS. PT DENIES SI. PT HAD MULTIPLE BMs, PROGRESSIVELY LOOSER AND BECOMING LIQUID. STOL SAMPLE COLLECTED. LAST EKG COMPLETED AND PLACED ON CHART. BRETT VIERA CALLED MD TO CONFIRM NO ADDITIONAL EKGs NEEDED. PT REMAINED AGREEABLE AND COOPERATIVE, NO SIGNS OF ACUTE DISTRESS.
--- NOTE | 2021-12-21 16:29 | NUR ---
SPOKE WITH DR. VELÁZQUEZ ON PHONE. THIS RN UNSURE OF DISCHARGE PLAN, CASE MANAGEMENT HAS ALREADY LEFT FOR THE AFTERNOON. ORDERS FOR MEDICAL NO TELE. TELE REMOVED AND RETURNED TO INSURANCE SALESPERSON.
[2021-12-21 16:31] LABS: Adenovirus F 40/41 Not Detected (NOT DETECT); Astrovirus Not Detected (NOT DETECT); Campylobacter Sp Not Detected (NOT DETECT); Cryptosporidium Not Detected (NOT DETECT); Cyclospora Cayetanensis Not Detected (NOT DETECT); E. Coli O157 Not Detected (NOT DETECT); Entamoeba Histolytica Not Detected (NOT DETECT); Enteroaggregative E. coli-EAEC Detected (NOT DETECT); Enteropathogenic E. coli-EPEC Not Detected (NOT DETECT); Enterotoxigenic E. coli-ETEC Not Detected (NOT DETECT); Giardia Lamblia Not Detected (NOT DETECT); Norovirus GI/GII Not Detected (NOT DETECT); Plesiomonas Shigelloides Not Detected (NOT DETECT); Rotavirus A Not Detected (NOT DETECT); Salmonella Sp Not Detected (NOT DETECT); Sapovirus Not Detected (NOT DETECT); Shiga Toxin-prod E. coli-STEC Not Detected (NOT DETECT); Shigella/Enteroin E. coli-EIEC Not Detected (NOT DETECT); Vibrio Cholerae Not Detected (NOT DETECT); Vibrio Sp Not Detected (NOT DETECT); Yersinia Enterocolitica Not Detected (NOT DETECT)
--- NOTE | 2021-12-21 17:03 | NUR ---
DR. VELÁZQUEZ CALLED TO UPDATE ON STOOL RESULTS. NO NEW ORDERS AT THIS TIME. WILL CONTINUE TO MONITOR.
--- NOTE | 2021-12-21 17:15 | NUR ---
SHIFT SUMMARY: PATIENT REMAINS ALERT AND ORIENTED. DISCUSSES WITH THIS RN, HOW SHE IS FEELING ALL OVER WITH HER EMOTIONS. SHE IS ANXIOUS TO KEEP TALKING ABOUT WHY SHE IS HERE ALTHOUGH SHE STATES SHE DOES NOT WANT TO HURT HERSELF AND IS REGRETFUL ABOUT WHAT HAPPENED. UP TO [facility] [place] LOOSE STOOLS X1. VITAL SIGNS REMAIN STABLE. NAUSEA INTERMITTENT, RELIEVED WITH EVENING DOSE OF MARINOL. MEDICAL STATUS WITH NO TELE. SITTER AT BEDSIDE. EATING DINNER AT THIS TIME. WILL CONTINUE TO MONITOR AND REPORT OFF.
--- NOTE | 2021-12-21 18:36 | NUR ---
DR. MELTON IN TO SEE PATIENT. UPDATED THIS RN, PLAN TO DISCONTINUE SI PRECAUTIONS AND DISMISS HOLD. MELTON TO PLACE ORDERS. PATIENT UPDATED. SITTER AT BEDSIDE UNTIL ORDERS ARE IN PLACE.
--- NOTE | 2021-12-22 05:51 | NUR ---
SHIFT SUMMARY [id number] PT SLEPT WELL OVERNIGHT, ORIENTED X4 AND ANXIOUS. LUNGS CLEAR/DIM, SLIGHT COUGH. DIARRHEA X2. DENIES NAUSEA. PAIN IN BILATERAL HIPS AND BACK PT STATES IS CHRONIC. PRN TYLENOL GIVEN W/RELIEF PER PT. DENIES ANY SI THOUGHTS OR PLANS. CALL LIGHT WITHIN REACH, FALL BUNDLE IN PLACE. WILL CONTINUE TO MONITOR AND PASS TO DAY RN
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
--- NOTE | 2021-12-22 15:20 | NUR ---
REPORT TO MEDICAL FLOOR. NO IVs INFUSING, ON RA.
--- NOTE | 2021-12-22 18:10 | NUR ---
THE PATIENT ARRIVED ON THE MEDICAL FLOOR AT 1540 THIS SHIFT. THE PATIENT IS IN BED. SPRITE AND CRACKERS BROUGHT TO BEDSIDE. NO DISTRESS AT THIS TIME. LUNGS ARE CLEAR. THE PATIENT DENIES ANY CHEST PAIN CURRENTLY. 1 ASSIST TO THE BSC. ON RA. NO TELE. THE PATIENT HAS BEEN HAVING LOOSE STOOLS PRIOR TO ARRIVAL CALL LIGHT WITHIN REACH. BED IN LOWEST POSITION.
[2021-12-23 05:39] LABS: BASOPHILS ABSOLUTE AUTO 0.04 K/mm3 (0.00-0.23); BASOPHILS PERCENT AUTO 1 % (0-2); EOSINOPHILS PERCENT AUTO 1 % (0-6); Hematocrit 39.6 % (33.0-51.0); Hemoglobin 13.4 g/dL (11.5-16.0); IMMATURE GRAN ABSOLUTE AUTO 0.03 K/mm3 (0.00-0.10); IMMATURE GRAN PERCENT AUTO 0 % (0-1); LYMPHOCYTES PERCENT AUTO 18 % (21-46); MONOCYTES ABSOLUTE AUTO 0.59 K/mm3 (0.16-1.47); MONOCYTES PERCENT AUTO 8 % (4-13); Mean Corpuscular HGB 30.5 pg (26.0-34.0); Mean Corpuscular HGB Conc 33.8 g/dL (31.5-36.5); Mean Corpuscular Volume 90 fL (80-100); Mean Platelet Volume 11.4 fL (9.1-12.4); NEUTROPHILS ABSOLUTE AUTO 5.72 K/mm3 (1.96-9.15); NEUTROPHILS PERCENT AUTO 73 % (41-73); Platelet Count 197 K/mm3 (150-400); RDW Coefficient Variation 13.3 % (11.7-14.2); RDW Standard Deviation 44.2 fL (35.1-46.3); Red Blood Cell Count 4.39 M/mm3 (3.80-5.20); White Blood Cell Count 7.88 K/mm3 (4.00-11.30)
[2021-12-23 06:44] LABS: Anion Gap 5 mmol/L (6-16); Blood Urea Nitrogen 21 mg/dL (8-24); Bun/Creatinine Ratio 24.3 (12.0-20.0); CO2, Blood 27 mmol/L (21-32); Calcium, Blood 9.2 mg/dL (8.5-10.1); Chloride, Blood 112 mmol/L (98-108); Creatinine, Blood 0.86 mg/dL (0.40-1.00); Glomerular Filtration Rate >60 (60-); Glucose, Blood 106 mg/dL (70-99); Potassium, Blood 3.6 mmol/L (3.5-5.5); Sodium, Blood 144 mmol/L (136-145)
--- NOTE | 2021-12-23 06:44 | NUR ---
SHIFT SUMMARY PT IS A 71 Y/O FEMALE, ADMITTED FOR RX OVERDOSE. SHE IS A&O X 4, DEPRESSED AND ANXIOUS AT TIMES. PT REPORTED PAIN AND NAUSEA THIS AM, AND WAS MEDICATED WITH PRN TYLENOL 3. UNABLE TO MEDICATE WITH SCHEDULED MARINOL FOR NAUSEA AT THIS TIME, WHICH PT IS AWARE OF. NO C/O ACUTE SOB. VITAL SIGNS STABLE. PT REPORTS SHE DIDN'T SLEEP WELL DURING THE NIGHT, WHICH "MAKES ME DEPRESSED". NO OTHER ACUTE CHANGES IN PT CONDITION NOTED DURING THE NIGHT. WILL CONTINUE TO MONITOR AND TREAT PER EMAR UNTIL HAND OFF TO DAY SHIFT RN.
[2021-12-23] MEDS ORDERED: Acetaminophen325 M1 PO (13:01)
[2021-12-23] MEDS ORDERED: HYDHCL25 PO (13:01)
== END 2021-12-23 14:41 | disposition home or self-care (01) ==
LOC: ER 12:07 → PCU 18:46 → MEDS 12-22 15:44 → ENPENDDIS 12-23 13:07 → MEDS 12-23 14:41
PROVIDERS: Family Medicine; Student in an Organized Health Care Education/Training Program; ADMIT Hospitalist
DX: T43.212A Poisoning by selective serotonin and norepinephrine reuptake inhibitors, intentional self-harm, initial encounter (principal); R11.2 Nausea with vomiting, unspecified; F33.9 Major depressive disorder, recurrent, unspecified; I25.2 Old myocardial infarction; E78.5 Hyperlipidemia, unspecified; G47.33 Obstructive sleep apnea (adult) (pediatric); K21.9 Gastro-esophageal reflux disease without esophagitis; I10 Essential (primary) hypertension; I25.10 Atherosclerotic heart disease of native coronary artery without angina pectoris; M19.90 Unspecified osteoarthritis, unspecified site; F15.10 Other stimulant abuse, uncomplicated; A04.4 Other intestinal Escherichia coli infections; G89.29 Other chronic pain; M54.9 Dorsalgia, unspecified; Z91.51 Personal history of suicidal behavior; Y92.009 Unspecified place in unspecified non-institutional (private) residence as the place of occurrence of the external cause; Z88.5 Allergy status to narcotic agent; Z88.8 Allergy status to other drugs, medicaments and biological substances
CPT/HCPCS: 36415; 80048; 80053; 81001; 82803; 83735; 85025; 87086; 87507; 92610; 93005; 93010; 96365; 96366; 96375; 99285-25; A9270; G0480; J1650; J2765; J3475; J3480; J7030; J7040; P9612; Q0167

== ENCOUNTER 2022-01-05 09:39 | Emergency (ER) | payer MEDICARE, OTHER ==
[~2022-01-05] VITALS: Ht 162.6 cm; Wt 71.2 kg
[~2022-01-05 09:39] MED LIST changes: +HYDHCL25 PO
[2022-01-05 10:28] LABS: BASOPHILS ABSOLUTE AUTO 0.02 K/mm3 (0.00-0.23); BASOPHILS PERCENT AUTO 0 % (0-2); EOSINOPHILS ABSOLUTE AUTO 0.12 K/mm3 (0.00-0.68); EOSINOPHILS PERCENT AUTO 2 % (0-6); Hematocrit 40.8 % (33.0-51.0); Hemoglobin 13.7 g/dL (11.5-16.0); IMMATURE GRAN ABSOLUTE AUTO 0.01 K/mm3 (0.00-0.10); IMMATURE GRAN PERCENT AUTO 0 % (0-1); LYMPHOCYTES PERCENT AUTO 18 % (21-46); MONOCYTES ABSOLUTE AUTO 0.52 K/mm3 (0.16-1.47); MONOCYTES PERCENT AUTO 7 % (4-13); Mean Corpuscular HGB 30.1 pg (26.0-34.0); Mean Corpuscular HGB Conc 33.6 g/dL (31.5-36.5); Mean Corpuscular Volume 90 fL (80-100); Mean Platelet Volume 11.5 fL (9.1-12.4); NEUTROPHILS ABSOLUTE AUTO 5.63 K/mm3 (1.96-9.15); NEUTROPHILS PERCENT AUTO 73 % (41-73); Platelet Count 259 K/mm3 (150-400); RDW Coefficient Variation 13.5 % (11.7-14.2); RDW Standard Deviation 45.1 fL (35.1-46.3); Red Blood Cell Count 4.55 M/mm3 (3.80-5.20)
[2022-01-05 10:51] LABS: Alanine Aminotransfer (ALT/SGP 19 U/L (12-78); Albumin, Blood 3.4 g/dL (3.4-5.0); Albumin/Globulin Ratio 0.9 (0.8-1.8); Alk Phos 141 U/L (50-136); Anion Gap 5 mmol/L (6-16); Aspartate Aminotrans (AST/SGOT 17 U/L (12-37); Bilirubin, Total 0.3 mg/dL (0.1-1.0); Blood Urea Nitrogen 14 mg/dL (8-24); Bun/Creatinine Ratio 21.3 (12.0-20.0); CO2, Blood 26 mmol/L (21-32); Calcium, Blood 9.4 mg/dL (8.5-10.1); Chloride, Blood 111 mmol/L (98-108); Creatinine, Blood 0.66 mg/dL (0.40-1.00); Globulin, Blood 3.6 g/dL (2.2-4.0); Glomerular Filtration Rate >60 (60-); Glucose, Blood 93 mg/dL (70-99); Potassium, Blood 3.7 mmol/L (3.5-5.5); Sodium, Blood 142 mmol/L (136-145)
== END 2022-01-05 11:38 | disposition left against medical advice (07) ==
LOC: ER 09:39
PROVIDERS: Physician Assistant
DX: R07.9 Chest pain, unspecified (principal); Z53.21 Procedure and treatment not carried out due to patient leaving prior to being seen by health care provider
CPT/HCPCS: 36415; 71045; 80053; 84484; 85025; 93005; 93010; 99283-25

== ENCOUNTER → 2022-01-18 | Outpatient (CLI) | payer MEDICARE, OTHER ==
[2022-01-18 09:14] LABS: BASOPHILS ABSOLUTE AUTO 0.02 K/mm3 (0.00-0.23); BASOPHILS PERCENT AUTO 0 % (0-2); EOSINOPHILS ABSOLUTE AUTO 0.09 K/mm3 (0.00-0.68); EOSINOPHILS PERCENT AUTO 1 % (0-6); Hematocrit 42.3 % (33.0-51.0); Hemoglobin 14.3 g/dL (11.5-16.0); IMMATURE GRAN ABSOLUTE AUTO 0.03 K/mm3 (0.00-0.10); IMMATURE GRAN PERCENT AUTO 0 % (0-1); LYMPHOCYTES ABSOLUTE AUTO 1.02 K/mm3 (0.84-5.20); LYMPHOCYTES PERCENT AUTO 15 % (21-46); MONOCYTES ABSOLUTE AUTO 0.38 K/mm3 (0.16-1.47); MONOCYTES PERCENT AUTO 6 % (4-13); Mean Corpuscular HGB 30.9 pg (26.0-34.0); Mean Corpuscular HGB Conc 33.8 g/dL (31.5-36.5); Mean Corpuscular Volume 91 fL (80-100); Mean Platelet Volume 11.7 fL (9.1-12.4); NEUTROPHILS ABSOLUTE AUTO 5.39 K/mm3 (1.96-9.15); NEUTROPHILS PERCENT AUTO 78 % (41-73); Platelet Count 220 K/mm3 (150-400); RDW Coefficient Variation 13.9 % (11.7-14.2); RDW Standard Deviation 46.2 fL (35.1-46.3); Red Blood Cell Count 4.63 M/mm3 (3.80-5.20); White Blood Cell Count 6.93 K/mm3 (4.00-11.30)
[2022-01-18 09:23] LABS: Alanine Aminotransfer (ALT/SGP 20 U/L (12-78); Albumin, Blood 3.4 g/dL (3.4-5.0); Albumin/Globulin Ratio 0.9 (0.8-1.8); Alk Phos 152 U/L (40-126); Anion Gap 7 mmol/L (6-16); Aspartate Aminotrans (AST/SGOT 14 U/L (12-37); Bilirubin, Total 0.3 mg/dL (0.1-1.0); Blood Urea Nitrogen 18 mg/dL (8-24); Bun/Creatinine Ratio 21.4 (12.0-20.0); CO2, Blood 28 mmol/L (21-32); Calcium, Blood 9.2 mg/dL (8.5-10.1); Chloride, Blood 108 mmol/L (98-108); Creatinine, Blood 0.84 mg/dL (0.40-1.00); Globulin, Blood 3.8 g/dL (2.2-4.0); Glomerular Filtration Rate >60 (60-); Glucose, Blood 106 mg/dL (70-99); Sodium, Blood 143 mmol/L (136-145); Total Protein, Blood 7.2 g/dL (6.4-8.2)
== END | disposition home or self-care (01) ==
LOC: LAB SHORT 09:08
PROVIDERS: Chiropractor
DX: E86.0 Dehydration (principal)
CPT/HCPCS: 80053; 85025

== ENCOUNTER → 2022-11-14 | Outpatient (CLI) | payer MEDICARE, OTHER ==
[~2022-11-14] MED LIST changes: +AMOCLA875 PO
[2022-11-21 08:20] LABS: Stool Occult Bld Immuno 1 Negative (NEGATIVE)
== END | disposition home or self-care (01) ==
LOC: LAB SHORT 15:00 → LAB 15:00
PROVIDERS: Nurse Practitioner Family
DX: Z12.11 Encounter for screening for malignant neoplasm of colon (principal)
CPT/HCPCS: G0328

== ENCOUNTER → 2023-10-03 | Outpatient (CLI) | payer MEDICARE, OTHER ==
[~2023-10-03] MED LIST changes: +OXYC5 PO
[2023-10-03 15:26] LABS: Candida species (DNA Probe) Negative (NEGATIVE); G. vaginalis (DNA Probe) Negative (NEGATIVE); T. vaginalis (DNA Probe) Negative (NEGATIVE)
== END | disposition home or self-care (01) ==
LOC: LAB SHORT 12:09 → LAB 12:09
PROVIDERS: Nurse Practitioner Family
DX: N89.8 Other specified noninflammatory disorders of vagina (principal); N39.46 Mixed incontinence
CPT/HCPCS: 87086; 87480; 87510; 87660

== ENCOUNTER 2023-10-06 06:14 | Emergency (ER) | payer MEDICARE, OTHER ==
[~2023-10-06] VITALS: Ht 165.1 cm; Wt 68.0 kg
[~2023-10-06 06:14] MED LIST changes: -OXYC5 PO
[2023-10-06 07:04] LABS: BASOPHILS ABSOLUTE AUTO 0.04 K/mm3 (0.00-0.23); BASOPHILS PERCENT AUTO 1 % (0-2); EOSINOPHILS ABSOLUTE AUTO 0.15 K/mm3 (0.00-0.68); EOSINOPHILS PERCENT AUTO 2 % (0-6); Hematocrit 41.2 % (33.0-51.0); Hemoglobin 13.8 g/dL (11.5-16.0); IMMATURE GRAN ABSOLUTE AUTO 0.01 K/mm3 (0.00-0.10); IMMATURE GRAN PERCENT AUTO 0 % (0-1); LYMPHOCYTES ABSOLUTE AUTO 1.22 K/mm3 (0.84-5.20); LYMPHOCYTES PERCENT AUTO 16 % (21-46); MONOCYTES ABSOLUTE AUTO 0.46 K/mm3 (0.16-1.47); MONOCYTES PERCENT AUTO 6 % (4-13); Mean Corpuscular HGB 29.8 pg (26.0-34.0); Mean Corpuscular HGB Conc 33.5 g/dL (31.5-36.5); Mean Corpuscular Volume 89 fL (80-100); Mean Platelet Volume 11.6 fL (9.1-12.4); NEUTROPHILS ABSOLUTE AUTO 5.59 K/mm3 (1.96-9.15); NEUTROPHILS PERCENT AUTO 75 % (41-73); Platelet Count 257 K/mm3 (150-400); RDW Coefficient Variation 13.8 % (11.7-14.2); RDW Standard Deviation 44.9 fL (35.1-46.3); Red Blood Cell Count 4.63 M/mm3 (3.80-5.20); White Blood Cell Count 7.47 K/mm3 (4.00-11.30)
[2023-10-06 07:18] LABS: Albumin, Blood 3.2 g/dL (3.4-5.0); Albumin/Globulin Ratio 0.8 (0.8-1.8); Bilirubin, Total 0.4 mg/dL (0.1-1.0); Bun/Creatinine Ratio 19.9 (12.0-20.0); Calcium, Blood 9.5 mg/dL (8.5-10.1); Creatinine, Blood 0.75 mg/dL (0.40-1.00); Globulin, Blood 4.1 g/dL (2.2-4.0); Potassium, Blood 4.4 mmol/L (3.5-5.5); Total Protein, Blood 7.3 g/dL (6.4-8.2)
[2023-10-06 09:20] LABS: Source, Urine Straight Cath
[2023-10-06 09:28] LABS: Appearance, Urine Clear (Clear); Bilirubin, Urine Neg (Neg); Blood, Urine Neg (Neg); Glucose Qualitative, Urine Neg (Neg); Ketones, Urine Neg (Neg); Leukocyte Esterase, Urine 1+ (Neg); Nitrite, Urine Neg (Neg); Protein, Urine Neg (Neg); Urobilinogen, Urine NORM (Normal)
[2023-10-06 10:06] LABS: Color, Urine No Color (P-Yellow)
[2023-10-06 10:09] LABS: Red Blood Cells, Urine 0-2 /hpf (0-2); White Blood Cells, Urine 0-2 /hpf (0-5)
[2023-10-06 10:10] LABS: Bacteria Rare /hpf; Squamous Epithelial Cells Not Seen /hpf (Few)
[2023-10-06] MEDS ORDERED: OXYC5 PO (10:26)
[2023-10-06 10:29] VITALS: BP 146/77
== END 2023-10-06 10:48 | disposition home or self-care (01) ==
LOC: ER 06:14
PROVIDERS: Emergency Medicine
DX: R10.32 Left lower quadrant pain (principal); F17.210 Nicotine dependence, cigarettes, uncomplicated; K21.9 Gastro-esophageal reflux disease without esophagitis; I10 Essential (primary) hypertension; G47.30 Sleep apnea, unspecified; I25.2 Old myocardial infarction; G89.29 Other chronic pain; F17.200 Nicotine dependence, unspecified, uncomplicated; Z88.5 Allergy status to narcotic agent; Z88.8 Allergy status to other drugs, medicaments and biological substances
CPT/HCPCS: 74177; 80053; 81001; 83690; 85025; 87077; 87086; 87186; 96361; 96374-59; 96375; 99285-25; J1170; J2405; J7030; Q9967

== ENCOUNTER 2023-10-22 05:49 | Emergency (ER) | payer MEDICARE, OTHER ==
[~2023-10-22] VITALS: Ht 165.1 cm; Wt 68.0 kg
[~2023-10-22 05:49] MED LIST changes: +OXYC5 PO
[2023-10-22 06:11] LABS: BASOPHILS ABSOLUTE AUTO 0.05 K/mm3 (0.00-0.23); BASOPHILS PERCENT AUTO 1 % (0-2); EOSINOPHILS ABSOLUTE AUTO 0.18 K/mm3 (0.00-0.68); EOSINOPHILS PERCENT AUTO 2 % (0-6); Hemoglobin 13.8 g/dL (11.5-16.0); IMMATURE GRAN ABSOLUTE AUTO 0.02 K/mm3 (0.00-0.10); IMMATURE GRAN PERCENT AUTO 0 % (0-1); LYMPHOCYTES ABSOLUTE AUTO 1.27 K/mm3 (0.84-5.20); LYMPHOCYTES PERCENT AUTO 14 % (21-46); MONOCYTES ABSOLUTE AUTO 0.52 K/mm3 (0.16-1.47); MONOCYTES PERCENT AUTO 6 % (4-13); Mean Corpuscular HGB 29.9 pg (26.0-34.0); Mean Corpuscular HGB Conc 33.7 g/dL (31.5-36.5); Mean Corpuscular Volume 89 fL (80-100); Mean Platelet Volume 11.1 fL (9.1-12.4); NEUTROPHILS ABSOLUTE AUTO 7.12 K/mm3 (1.96-9.15); NEUTROPHILS PERCENT AUTO 78 % (41-73); Platelet Count 264 K/mm3 (150-400); RDW Coefficient Variation 13.7 % (11.7-14.2); RDW Standard Deviation 44.8 fL (35.1-46.3); Red Blood Cell Count 4.61 M/mm3 (3.80-5.20); White Blood Cell Count 9.16 K/mm3 (4.00-11.30)
[2023-10-22 06:29] LABS: Source, Urine Clean Catch
[2023-10-22 06:34] LABS: Albumin, Blood 3.4 g/dL (3.4-5.0); Albumin/Globulin Ratio 0.9 (0.8-1.8); Bilirubin, Total 0.4 mg/dL (0.1-1.0); Bun/Creatinine Ratio 14.8 (12.0-20.0); Calcium, Blood 9.4 mg/dL (8.5-10.1); Creatinine, Blood 0.81 mg/dL (0.40-1.00); Globulin, Blood 3.8 g/dL (2.2-4.0); Potassium, Blood 3.9 mmol/L (3.5-5.5); Total Protein, Blood 7.2 g/dL (6.4-8.2)
[2023-10-22 06:34] LABS: Appearance, Urine Hazy (Clear); Bilirubin, Urine Neg (Neg); Blood, Urine 1+ (Neg); Color, Urine Yellow (P-Yellow); Glucose Qualitative, Urine Neg (Neg); Ketones, Urine 1+ (Neg); Leukocyte Esterase, Urine 3+ (Neg); Nitrite, Urine Neg (Neg); Protein, Urine 1+ (Neg); Specific Gravity, Urine 1.015 (1.003-1.022); Urobilinogen, Urine NORM (Normal)
[2023-10-22] MEDS ORDERED: NS 1,000 ML IV SCH (06:40)
[2023-10-22] MEDS ORDERED: Ondansetron HCl 2 MG / ML 2ML Vial IV ONE (06:40)
[2023-10-22] MEDS ORDERED: FentaNYL Citrate 50 MCG/ML 2 ML Injection IV ONE (06:40)
[2023-10-22 06:42] LABS: Bacteria Few /hpf; Calcium Oxalate Crystals Few /hpf; Squamous Epithelial Cells Few /hpf (Few)
[2023-10-22] MEDS ORDERED: GABA100 PO (08:16)
[2023-10-22] MEDS ORDERED: GABA400 PO (08:16)
[2023-10-22] MEDS ORDERED: ZOLP10 PO (08:18)
[2023-10-22] MEDS ORDERED: METF500 PO (08:18)
[2023-10-22] MEDS ORDERED: ONDA4ODT (08:19)
[2023-10-22] MEDS ORDERED: TRAZ100 PO (08:19)
[2023-10-22] MEDS ORDERED: THERA-D2000 UNIT PO (08:19)
[2023-10-22] MEDS ORDERED: METR500 PO (08:32)
[2023-10-22] MEDS ORDERED: PROBIOTIC1 EA13 PO (08:32)
[2023-10-22] MEDS ORDERED: CIPR500 PO (08:32)
[2023-10-22 09:18] VITALS: BP 158/102
== END 2023-10-22 09:21 | disposition home or self-care (01) ==
LOC: ER 05:49
PROVIDERS: Emergency Medicine
DX: K57.32 Diverticulitis of large intestine without perforation or abscess without bleeding (principal); N39.0 Urinary tract infection, site not specified; B96.20 Unspecified Escherichia coli [E. coli] as the cause of diseases classified elsewhere; Z88.8 Allergy status to other drugs, medicaments and biological substances; Z88.5 Allergy status to narcotic agent; Z79.899 Other long term (current) drug therapy; Z79.82 Long term (current) use of aspirin; K21.9 Gastro-esophageal reflux disease without esophagitis; I10 Essential (primary) hypertension; G47.33 Obstructive sleep apnea (adult) (pediatric); E78.5 Hyperlipidemia, unspecified; I25.10 Atherosclerotic heart disease of native coronary artery without angina pectoris; F17.210 Nicotine dependence, cigarettes, uncomplicated
CPT/HCPCS: 74177; 80053; 81001; 82947; 83690; 85025; 87086; 93005; 93010; 96361; 96374-59; 96375; 99285-25; J2405; J3010; J7030; Q9967

== ENCOUNTER 2024-05-03 08:28 | Emergency (ER) | payer MEDICARE, OTHER ==
[~2024-05-03] VITALS: Ht 167.6 cm; Wt 65.8 kg
[~2024-05-03 08:28] MED LIST changes: +GABA400 PO; +METF500 PO; +ONDA4ODT; +PROBIOTIC1 EA13 PO; +Roxicodone5 MG PO; +THERA-D2000 UNIT PO; +ZOLP10 PO
[2024-05-03] MEDS ORDERED: Ondansetron HCl 2 MG / ML 2ML Vial IV ONE (09:10)
[2024-05-03] MEDS ORDERED: Ketorolac Tromethamine 15mg Vial IV ONE (09:10)
[2024-05-03 09:16] LABS: BASOPHILS ABSOLUTE AUTO 0.03 K/mm3 (0.00-0.23); BASOPHILS PERCENT AUTO 0 % (0-2); EOSINOPHILS ABSOLUTE AUTO 0.19 K/mm3 (0.00-0.68); EOSINOPHILS PERCENT AUTO 3 % (0-6); Hematocrit 41.5 % (33.0-51.0); Hemoglobin 14.2 g/dL (11.5-16.0); IMMATURE GRAN ABSOLUTE AUTO 0.02 K/mm3 (0.00-0.10); IMMATURE GRAN PERCENT AUTO 0 % (0-1); LYMPHOCYTES ABSOLUTE AUTO 1.44 K/mm3 (0.84-5.20); LYMPHOCYTES PERCENT AUTO 20 % (21-46); MONOCYTES ABSOLUTE AUTO 0.54 K/mm3 (0.16-1.47); MONOCYTES PERCENT AUTO 8 % (4-13); Mean Corpuscular HGB 30.3 pg (26.0-34.0); Mean Corpuscular HGB Conc 34.2 g/dL (31.5-36.5); Mean Corpuscular Volume 89 fL (80-100); Mean Platelet Volume 11.5 fL (9.1-12.4); NEUTROPHILS ABSOLUTE AUTO 4.92 K/mm3 (1.96-9.15); NEUTROPHILS PERCENT AUTO 69 % (41-73); Platelet Count 220 K/mm3 (150-400); RDW Coefficient Variation 13.6 % (11.7-14.2); RDW Standard Deviation 44.1 fL (35.1-46.3); Red Blood Cell Count 4.69 M/mm3 (3.80-5.20); White Blood Cell Count 7.14 K/mm3 (4.00-11.30)
[2024-05-03] MEDS ORDERED: OLMESARTAN MEDOX5 MG PO (09:16)
[2024-05-03 09:30] LABS: Albumin, Blood 3.4 g/dL (3.4-5.0); Albumin/Globulin Ratio 0.9 (0.8-1.8); Bilirubin, Total 0.4 mg/dL (0.1-1.0); Bun/Creatinine Ratio 19.8 (12.0-20.0); Creatinine, Blood 0.71 mg/dL (0.40-1.00); Globulin, Blood 3.8 g/dL (2.2-4.0); Potassium, Blood 3.7 mmol/L (3.5-5.5); Total Protein, Blood 7.2 g/dL (6.4-8.2)
[2024-05-03] MEDS ORDERED: HYDROmorphone HCl/Pf 1MG SYR IV PRN (09:35)
[2024-05-03 09:38] LABS: Source, Urine Clean Catch
[2024-05-03 09:41] LABS: Appearance, Urine Clear (Clear); Bilirubin, Urine Neg (Neg); Blood, Urine Neg (Neg); Color, Urine Yellow (P-Yellow); Glucose Qualitative, Urine Neg (Neg); Ketones, Urine Neg (Neg); Leukocyte Esterase, Urine 1+ (Neg); Nitrite, Urine Neg (Neg); Protein, Urine Neg (Neg); Urobilinogen, Urine NORM (Normal)
[2024-05-03 09:45] VITALS: BP 145/91
[2024-05-03 09:49] LABS: Bacteria Rare /hpf; Red Blood Cells, Urine 0-2 /hpf (0-2); Squamous Epithelial Cells Rare /hpf (Few)
[2024-05-03] MEDS ORDERED: Simethicone 40 MG/0.6 ML 30ML BTL PO ONE (11:25)
[2024-05-03] MEDS ORDERED: HYDR1TAB94 PO (11:42)
== END 2024-05-03 11:50 | disposition home or self-care (01) ==
LOC: ER 08:28
PROVIDERS: Physician Assistant
DX: R10.9 Unspecified abdominal pain (principal); K21.9 Gastro-esophageal reflux disease without esophagitis; I10 Essential (primary) hypertension; G47.30 Sleep apnea, unspecified; I25.2 Old myocardial infarction; M41.9 Scoliosis, unspecified; F41.8 Other specified anxiety disorders; E78.5 Hyperlipidemia, unspecified; I25.10 Atherosclerotic heart disease of native coronary artery without angina pectoris; M19.90 Unspecified osteoarthritis, unspecified site; F17.200 Nicotine dependence, unspecified, uncomplicated
CPT/HCPCS: 74177; 80053; 81001; 83690; 85025; 87086; 96374-59; 96375; 96376; 99284-25; A9270; J1170; J1885; J2405; Q9967

== ENCOUNTER 2024-08-25 09:20 | Emergency (ER) | payer MEDICARE, OTHER ==
[~2024-08-25] VITALS: Ht 160 cm; Wt 90.7 kg
[~2024-08-25 09:20] MED LIST changes: +OLMESARTAN MEDOX5 MG PO
[2024-08-25 09:50] VITALS: BP 156/104
[2024-08-26] MEDS ORDERED: GABA100 PO (08:55)
[2024-08-26] MEDS ORDERED: GABAPENTIN600 MG PO (08:55)
[2024-08-26] MEDS ORDERED: XANAX0.25 MG (08:56)
[2024-08-26] MEDS ORDERED: PROAIR DIGIHAL90 MCG (08:56)
[2024-08-26] MEDS ORDERED: BISA10S PR (09:55)
[2024-08-26] MEDS ORDERED: DOC250 PO (09:55)
[2024-08-26] MEDS ORDERED: MAGCIT300 PO (09:55)
[2024-08-26] MEDS ORDERED: NAPR500 PO (10:24)
== END 2024-08-25 10:31 | disposition left against medical advice (07) ==
LOC: ER 09:20
DX: R10.32 Left lower quadrant pain (principal); R11.0 Nausea; Z53.21 Procedure and treatment not carried out due to patient leaving prior to being seen by health care provider
CPT/HCPCS: 99281

== ENCOUNTER 2024-08-26 07:01 | Emergency (ER) | payer MEDICARE, OTHER ==
[~2024-08-26] VITALS: Ht 165.1 cm; Wt 68.0 kg
[2024-08-26] MEDS ORDERED: FentaNYL Citrate 50 MCG/ML 2 ML Injection IV ONE (07:50)
[2024-08-26] MEDS ORDERED: Ondansetron HCl 2 MG / ML 2ML Vial IV ONE (07:50)
[2024-08-26 08:14] LABS: BASOPHILS ABSOLUTE AUTO 0.03 K/mm3 (0.00-0.23); BASOPHILS PERCENT AUTO 0 % (0-2); EOSINOPHILS ABSOLUTE AUTO 0.13 K/mm3 (0.00-0.68); EOSINOPHILS PERCENT AUTO 2 % (0-6); Hematocrit 41.2 % (33.0-51.0); Hemoglobin 13.6 g/dL (11.5-16.0); IMMATURE GRAN ABSOLUTE AUTO 0.02 K/mm3 (0.00-0.10); IMMATURE GRAN PERCENT AUTO 0 % (0-1); LYMPHOCYTES ABSOLUTE AUTO 1.47 K/mm3 (0.84-5.20); LYMPHOCYTES PERCENT AUTO 20 % (21-46); MONOCYTES ABSOLUTE AUTO 0.42 K/mm3 (0.16-1.47); MONOCYTES PERCENT AUTO 6 % (4-13); Mean Corpuscular HGB 29.8 pg (26.0-34.0); Mean Corpuscular Volume 90 fL (80-100); Mean Platelet Volume 11.5 fL (9.1-12.4); NEUTROPHILS ABSOLUTE AUTO 5.46 K/mm3 (1.96-9.15); NEUTROPHILS PERCENT AUTO 73 % (41-73); Platelet Count 220 K/mm3 (150-400); RDW Coefficient Variation 13.9 % (11.7-14.2); RDW Standard Deviation 45.6 fL (35.1-46.3); Red Blood Cell Count 4.57 M/mm3 (3.80-5.20); White Blood Cell Count 7.53 K/mm3 (4.00-11.30)
[2024-08-26] MEDS ORDERED: HYDROmorphone HCl/Pf 1MG SYR IV ONE (08:25)
[2024-08-26 08:34] LABS: Albumin, Blood 3.3 g/dL (3.4-5.0); Albumin/Globulin Ratio 0.9 (0.8-1.8); Bilirubin, Total 0.3 mg/dL (0.1-1.0); Bun/Creatinine Ratio 17.3 (12.0-20.0); Calcium, Blood 9.4 mg/dL (8.5-10.1); Creatinine, Blood 0.75 mg/dL (0.40-1.00); Globulin, Blood 3.6 g/dL (2.2-4.0); Potassium, Blood 3.9 mmol/L (3.5-5.5); Total Protein, Blood 6.9 g/dL (6.4-8.2)
[2024-08-26] MEDS ORDERED: GABA100 PO (08:55)
[2024-08-26] MEDS ORDERED: GABAPENTIN600 MG PO (08:55)
[2024-08-26] MEDS ORDERED: PROAIR DIGIHAL90 MCG (08:56)
[2024-08-26] MEDS ORDERED: XANAX0.25 MG (08:56)
[2024-08-26] MEDS ORDERED: MAGCIT300 PO (09:55)
[2024-08-26] MEDS ORDERED: BISA10S PR (09:55)
[2024-08-26] MEDS ORDERED: DOC250 PO (09:55)
[2024-08-26 10:04] VITALS: BP 125/101
[2024-08-26] MEDS ORDERED: Ketorolac Tromethamine 30mg Vial IV ONE (10:20)
[2024-08-26] MEDS ORDERED: NAPR500 PO (10:24)
== END 2024-08-26 10:29 | disposition home or self-care (01) ==
LOC: ER 07:01
PROVIDERS: Emergency Medicine
DX: K59.00 Constipation, unspecified (principal); K21.9 Gastro-esophageal reflux disease without esophagitis; I25.2 Old myocardial infarction; I10 Essential (primary) hypertension; I25.10 Atherosclerotic heart disease of native coronary artery without angina pectoris; E78.5 Hyperlipidemia, unspecified; G47.33 Obstructive sleep apnea (adult) (pediatric); M41.9 Scoliosis, unspecified; F17.210 Nicotine dependence, cigarettes, uncomplicated; Z88.5 Allergy status to narcotic agent; Z88.8 Allergy status to other drugs, medicaments and biological substances; Z79.84 Long term (current) use of oral hypoglycemic drugs; Z79.899 Other long term (current) drug therapy
CPT/HCPCS: 74177; 80053; 85025; 96374-59; 96375; 99284-25; J1171; J1885; J2405; J3010; Q9967

== ENCOUNTER 2024-09-28 05:49 | Emergency (ER) | payer MEDICARE, OTHER ==
[~2024-09-28] VITALS: Ht 165.1 cm; Wt 67.6 kg
[~2024-09-28 05:49] MED LIST changes: +BISA10S PR; +DOC250 PO; +GABAPENTIN600 MG PO; +MAGCIT300 PO; +NAPR500 PO; +PROAIR DIGIHAL90 MCG; +XANAX0.25 MG
[2024-09-28 06:22] LABS: BASOPHILS ABSOLUTE AUTO 0.03 K/mm3 (0.00-0.23); BASOPHILS PERCENT AUTO 0 % (0-2); EOSINOPHILS ABSOLUTE AUTO 0.14 K/mm3 (0.00-0.68); EOSINOPHILS PERCENT AUTO 2 % (0-6); Hematocrit 41.3 % (33.0-51.0); Hemoglobin 14.2 g/dL (11.5-16.0); IMMATURE GRAN ABSOLUTE AUTO 0.02 K/mm3 (0.00-0.10); IMMATURE GRAN PERCENT AUTO 0 % (0-1); LYMPHOCYTES ABSOLUTE AUTO 1.21 K/mm3 (0.84-5.20); LYMPHOCYTES PERCENT AUTO 17 % (21-46); MONOCYTES ABSOLUTE AUTO 0.46 K/mm3 (0.16-1.47); MONOCYTES PERCENT AUTO 6 % (4-13); Mean Corpuscular HGB 30.1 pg (26.0-34.0); Mean Corpuscular HGB Conc 34.4 g/dL (31.5-36.5); Mean Corpuscular Volume 88 fL (80-100); Mean Platelet Volume 11.1 fL (9.1-12.4); NEUTROPHILS ABSOLUTE AUTO 5.34 K/mm3 (1.96-9.15); NEUTROPHILS PERCENT AUTO 74 % (41-73); Platelet Count 248 K/mm3 (150-400); RDW Standard Deviation 45.1 fL (35.1-46.3); Red Blood Cell Count 4.71 M/mm3 (3.80-5.20)
[2024-09-28 06:40] LABS: Albumin, Blood 3.6 g/dL (3.4-5.0); Albumin/Globulin Ratio 0.9 (0.8-1.8); Bilirubin, Total 0.3 mg/dL (0.1-1.0); Bun/Creatinine Ratio 23.8 (12.0-20.0); Calcium, Blood 9.6 mg/dL (8.5-10.1); Creatinine, Blood 0.67 mg/dL (0.40-1.00); Globulin, Blood 3.9 g/dL (2.2-4.0); Total Protein, Blood 7.5 g/dL (6.4-8.2)
[2024-09-28] MEDS ORDERED: FentaNYL Citrate 50 MCG/ML 2 ML Injection IV ONE ×2 (06:45→07:55)
[2024-09-28] MEDS ORDERED: Ketorolac Tromethamine 30mg Vial IV ONE (06:45)
[2024-09-28] MEDS ORDERED: NS 1,000 ML IV SCH (06:45)
[2024-09-28] MEDS ORDERED: Metoclopramide HCl 5MG / ML 2ML Vial IV ONE (06:45)
[2024-09-28 07:32] LABS: Source, Urine Clean Catch
[2024-09-28 07:38] LABS: Appearance, Urine Clear (Clear); Bilirubin, Urine Neg (Neg); Blood, Urine Neg (Neg); Color, Urine Yellow (P-Yellow); Glucose Qualitative, Urine Neg (Neg); Ketones, Urine 1+ (Neg); Leukocyte Esterase, Urine 3+ (Neg); Nitrite, Urine Neg (Neg); Protein, Urine 2+ (Neg); Specific Gravity, Urine 1.015 (1.003-1.022); Urobilinogen, Urine 1+ (Normal)
[2024-09-28 07:44] LABS: Amorphous Light (0-Heavy); Bacteria Few /hpf; Red Blood Cells, Urine 0-2 /hpf (0-2); Squamous Epithelial Cells Few /hpf (Few)
[2024-09-28 07:45] LABS: White Blood Cells, Urine 25-50 /hpf (0-5)
[2024-09-28] MEDS ORDERED: Atropine/Scopalam/Hyoscam/PB 5 ML UDC PO ONE (08:35)
[2024-09-28] MEDS ORDERED: Lactulose 200 GM/300 ML Enema 300ML BTL PR ONE (08:35)
[2024-09-28] MEDS ORDERED: ONDA4ODT MM (09:17)
[2024-09-28] MEDS ORDERED: MAGCIT300 PO (09:17)
[2024-09-28] MEDS ORDERED: MINERAL OIL133 M1 PR (09:17)
[2024-09-28] MEDS ORDERED: NITR100CA PO (09:17)
[2024-09-28 10:08] VITALS: BP 142/91
== END 2024-09-28 09:25 | disposition home or self-care (01) ==
LOC: ER 05:49
PROVIDERS: Emergency Medicine
DX: K59.00 Constipation, unspecified (principal); N39.0 Urinary tract infection, site not specified; R10.12 Left upper quadrant pain; K21.9 Gastro-esophageal reflux disease without esophagitis; G47.33 Obstructive sleep apnea (adult) (pediatric); E78.5 Hyperlipidemia, unspecified; I10 Essential (primary) hypertension; F17.210 Nicotine dependence, cigarettes, uncomplicated; Z79.899 Other long term (current) drug therapy; Z79.84 Long term (current) use of oral hypoglycemic drugs; Z88.5 Allergy status to narcotic agent; Z88.8 Allergy status to other drugs, medicaments and biological substances
CPT/HCPCS: 74177; 80053; 81001; 83690; 84484; 85025; 93005; 93010; A9270; J1885; J2765; J3010; J7030; Q9967

== ENCOUNTER → 2024-10-08 | Outpatient (CLI) | payer MEDICARE, OTHER ==
[~2024-10-08] MED LIST changes: +MINERAL OIL133 M1 PR; +NITR100CA PO
== END | disposition home or self-care (01) ==
LOC: LAB SHORT 10:20 → LAB 10:20
DX: R35.0 Frequency of micturition (principal)
CPT/HCPCS: 87086

== ENCOUNTER 2024-11-29 07:31 | Emergency (ER) | payer MEDICARE, OTHER ==
[~2024-11-29] VITALS: Ht 165.1 cm; Wt 67.1 kg
[2024-11-29 08:26] VITALS: BP 156/93
[2024-11-29] MEDS ORDERED: Cyclobenzaprine HCl 10 MG Tab PO ONE (09:20)
[2024-11-29] MEDS ORDERED: Ketorolac Tromethamine 15mg Vial IM ONE (09:20)
[2024-11-29] MEDS ORDERED: Percocet 5-3251 EACH PO (09:29)
== END 2024-11-29 09:40 | disposition home or self-care (01) ==
LOC: ER 07:31
DX: M54.50 Low back pain, unspecified (principal); G89.29 Other chronic pain; K21.9 Gastro-esophageal reflux disease without esophagitis; I10 Essential (primary) hypertension; E78.5 Hyperlipidemia, unspecified; M41.9 Scoliosis, unspecified; F41.9 Anxiety disorder, unspecified; F32.A Depression, unspecified; F17.210 Nicotine dependence, cigarettes, uncomplicated; I25.10 Atherosclerotic heart disease of native coronary artery without angina pectoris; I25.2 Old myocardial infarction; Z88.5 Allergy status to narcotic agent; Z88.8 Allergy status to other drugs, medicaments and biological substances; Z79.899 Other long term (current) drug therapy; Z79.84 Long term (current) use of oral hypoglycemic drugs
CPT/HCPCS: 96372; 99282-25; A9270; J1885

== ENCOUNTER → 2024-12-06 | Outpatient (CLI) | payer MEDICARE, OTHER ==
[~2024-12-06] MED LIST changes: +Percocet 5-3251 EACH PO
== END | disposition home or self-care (01) ==
LOC: LAB SHORT 07:40 → LAB 07:40
DX: R53.83 Other fatigue (principal)
CPT/HCPCS: 87086

== ENCOUNTER 2024-12-14 03:38 | Emergency (ER) | payer MEDICARE, OTHER ==
[~2024-12-14] VITALS: Ht 165.1 cm; Wt 63.5 kg
[2024-12-14] MEDS ORDERED: MethylPREDNISolone Sod Succ 125 MG Vial IV ONE (03:45)
[2024-12-14] MEDS ORDERED: Albuterol 2.5 MG/3 ML VIAL INH SCH (03:45)
[2024-12-14 03:59] LABS: BASOPHILS ABSOLUTE AUTO 0.03 K/mm3 (0.00-0.23); BASOPHILS PERCENT AUTO 0 % (0-2); EOSINOPHILS ABSOLUTE AUTO 0.12 K/mm3 (0.00-0.68); EOSINOPHILS PERCENT AUTO 1 % (0-6); Hematocrit 42.7 % (33.0-51.0); Hemoglobin 14.5 g/dL (11.5-16.0); IMMATURE GRAN ABSOLUTE AUTO 0.05 K/mm3 (0.00-0.10); IMMATURE GRAN PERCENT AUTO 1 % (0-1); LYMPHOCYTES ABSOLUTE AUTO 2.93 K/mm3 (0.84-5.20); LYMPHOCYTES PERCENT AUTO 34 % (21-46); MONOCYTES ABSOLUTE AUTO 0.63 K/mm3 (0.16-1.47); MONOCYTES PERCENT AUTO 7 % (4-13); Mean Corpuscular HGB 29.9 pg (26.0-34.0); Mean Corpuscular Volume 88 fL (80-100); Mean Platelet Volume 11.4 fL (9.1-12.4); NEUTROPHILS ABSOLUTE AUTO 4.83 K/mm3 (1.96-9.15); NEUTROPHILS PERCENT AUTO 56 % (41-73); Platelet Count 242 K/mm3 (150-400); RDW Coefficient Variation 14.1 % (11.7-14.2); RDW Standard Deviation 45.3 fL (35.1-46.3); Red Blood Cell Count 4.85 M/mm3 (3.80-5.20); White Blood Cell Count 8.59 K/mm3 (4.00-11.30)
[2024-12-14] MEDS ORDERED: Ketorolac Tromethamine 15mg Vial IV ONE (04:10)
[2024-12-14 04:22] LABS: Alanine Aminotransfer (ALT/SGP 18 U/L (12-78); Albumin, Blood 3.6 g/dL (3.4-5.0); Albumin/Globulin Ratio 1.1 (0.8-1.8); Alk Phos 121 U/L (50-136); Anion Gap 6 mmol/L (3-11); Aspartate Aminotrans (AST/SGOT 14 U/L (12-37); Bilirubin, Total 0.4 mg/dL (0.1-1.0); Blood Urea Nitrogen 16 mg/dL (8-24); Bun/Creatinine Ratio 20.2 (12.0-20.0); CO2, Blood 27 mmol/L (21-32); Calcium, Blood 8.9 mg/dL (8.5-10.1); Chloride, Blood 111 mmol/L (98-108); Creatinine, Blood 0.79 mg/dL (0.40-1.00); Ethanol (Alcohol), Blood, Med <3 mg/dL; Globulin, Blood 3.4 g/dL (2.2-4.0); Glomerular Filtration Rate 79 (60-); Glucose, Blood 90 mg/dL (70-99); Potassium, Blood 3.4 mmol/L (3.5-5.5); Sodium, Blood 141 mmol/L (136-145)
[2024-12-14 05:20] LABS: Influenza A, PCR NEGATIVE (NEGATIVE); Influenza B, PCR NEGATIVE (NEGATIVE); Resp Syncytial Virus, PCR NEGATIVE (NEGATIVE); SARS-Cov-2 (COVID-19) PCR, MMC NEGATIVE (NEGATIVE)
[2024-12-14 05:30] VITALS: BP 131/105
[2024-12-14] MEDS ORDERED: ALBU90OI INH (05:30)
[2024-12-14] MEDS ORDERED: Prednisone20 MG PO (05:30)
== END 2024-12-14 05:44 | disposition home or self-care (01) ==
LOC: ER 03:38
PROVIDERS: Emergency Medicine
DX: J44.1 Chronic obstructive pulmonary disease with (acute) exacerbation (principal); I10 Essential (primary) hypertension; K21.9 Gastro-esophageal reflux disease without esophagitis; G47.33 Obstructive sleep apnea (adult) (pediatric); M19.90 Unspecified osteoarthritis, unspecified site; E78.5 Hyperlipidemia, unspecified; F17.210 Nicotine dependence, cigarettes, uncomplicated; Z88.5 Allergy status to narcotic agent; Z88.8 Allergy status to other drugs, medicaments and biological substances; Z79.899 Other long term (current) drug therapy; Z79.84 Long term (current) use of oral hypoglycemic drugs
CPT/HCPCS: 0241U; 70450; 71045; 80053; 80320; 83880; 84484; 85025; 93005; 93010; 94640; 94664; J1885; J2919

== ENCOUNTER → 2025-05-18 | Outpatient (CLI) | payer MEDICARE, OTHER ==
[2025-05-18 14:13] LABS: BASOPHILS ABSOLUTE AUTO 0.03 K/mm3 (0.00-0.23); BASOPHILS PERCENT AUTO 0 % (0-2); EOSINOPHILS ABSOLUTE AUTO 0.12 K/mm3 (0.00-0.68); EOSINOPHILS PERCENT AUTO 2 % (0-6); Hematocrit 41.2 % (33.0-51.0); Hemoglobin 13.7 g/dL (11.5-16.0); IMMATURE GRAN ABSOLUTE AUTO 0.02 K/mm3 (0.00-0.10); IMMATURE GRAN PERCENT AUTO 0 % (0-1); LYMPHOCYTES ABSOLUTE AUTO 1.41 K/mm3 (0.84-5.20); LYMPHOCYTES PERCENT AUTO 21 % (21-46); MONOCYTES ABSOLUTE AUTO 0.52 K/mm3 (0.16-1.47); MONOCYTES PERCENT AUTO 8 % (4-13); Mean Corpuscular HGB Conc 33.3 g/dL (31.5-36.5); Mean Corpuscular Volume 92 fL (80-100); NEUTROPHILS ABSOLUTE AUTO 4.71 K/mm3 (1.96-9.15); NEUTROPHILS PERCENT AUTO 69 % (41-73); NRBC ABSOLUTE 0.00 K/mm3 (0.00-0.02); NRBC Auto 0.0 /100 WBC (0.0-0.2); Platelet Count 215 K/mm3 (150-400); RDW Coefficient Variation 13.9 % (11.7-14.2); RDW Standard Deviation 46.9 fL (35.1-46.3)
[2025-05-18 14:49] LABS: Alanine Aminotransfer (ALT/SGP 17 U/L (12-78); Albumin, Blood 3.6 g/dL (3.4-5.0); Albumin/Globulin Ratio 1.1 (0.8-1.8); Anion Gap 7 mmol/L (3-11); Aspartate Aminotrans (AST/SGOT 17 U/L (12-37); Bilirubin, Total 0.3 mg/dL (0.1-1.0); Blood Urea Nitrogen 12 mg/dL (8-24); CHOL/HDL RATIO 2.8; CO2, Blood 27 mmol/L (21-32); Calcium, Blood 8.4 mg/dL (8.5-10.1); Chloride, Blood 109 mmol/L (98-108); Cholesterol 145 mg/dL (50-200); Creatinine, Blood 0.80 mg/dL (0.40-1.00); Globulin, Blood 3.2 g/dL (2.2-4.0); Glucose, Blood 86 mg/dL (70-99); HDL Cholesterol 52 mg/dL (>39); LDL/HDL RATIO 1.3; Low Density Lipoprotein Chol 66 mg/dL (0-110); Potassium, Blood 4.1 mmol/L (3.5-5.5); Sodium, Blood 139 mmol/L (136-145); Thyroid Stimulating Hormone 2.190 uIU/mL (0.360-4.800); Total Protein, Blood 6.8 g/dL (6.4-8.2); Triglycerides 136 mg/dL (30-160); Very Low Density Lipoprot Chol 27 mg/dL (6-32)
== END ==
LOC: LAB 13:52 → LAB SHORT 13:52
PROVIDERS: Nurse Practitioner Family
DX: Z51.81 Encounter for therapeutic drug level monitoring (principal); Z79.899 Other long term (current) drug therapy
CPT/HCPCS: 80053; 80061; 82306; 82607; 82746; 83036; 84443; 85025

== ENCOUNTER 2025-09-07 05:55 | Emergency (ER) | payer MEDICARE, OTHER ==
[~2025-09-07] VITALS: Ht 162.6 cm; Wt 64.4 kg
[2025-09-07 06:13] LABS: BASOPHILS ABSOLUTE AUTO 0.02 K/mm3 (0.00-0.23); BASOPHILS PERCENT AUTO 0 % (0-2); EOSINOPHILS ABSOLUTE AUTO 0.12 K/mm3 (0.00-0.68); EOSINOPHILS PERCENT AUTO 1 % (0-6); Hematocrit 41.3 % (33.0-51.0); Hemoglobin 14.2 g/dL (11.5-16.0); IMMATURE GRAN ABSOLUTE AUTO 0.08 K/mm3 (0.00-0.10); IMMATURE GRAN PERCENT AUTO 1 % (0-1); LYMPHOCYTES ABSOLUTE AUTO 2.22 K/mm3 (0.84-5.20); LYMPHOCYTES PERCENT AUTO 16 % (21-46); MONOCYTES ABSOLUTE AUTO 0.76 K/mm3 (0.16-1.47); MONOCYTES PERCENT AUTO 6 % (4-13); Mean Corpuscular HGB Conc 34.4 g/dL (31.5-36.5); Mean Corpuscular Volume 87 fL (80-100); NEUTROPHILS ABSOLUTE AUTO 10.67 K/mm3 (1.96-9.15); NEUTROPHILS PERCENT AUTO 77 % (41-73); NRBC ABSOLUTE 0.00 K/mm3 (0.00-0.02); NRBC Auto 0.0 /100 WBC (0.0-0.2); Platelet Count 273 K/mm3 (150-400); RDW Coefficient Variation 14.2 % (11.7-14.2); RDW Standard Deviation 45.4 fL (35.1-46.3)
[2025-09-07 06:26] LABS: Alanine Aminotransfer (ALT/SGP 20.0 U/L (12-78); Albumin, Blood 3.2 g/dL (3.4-5.0); Albumin/Globulin Ratio 0.9 (0.8-1.8); Anion Gap 8.0 mmol/L (3-11); Aspartate Aminotrans (AST/SGOT 20.0 U/L (12-37); Bilirubin, Total 0.3 mg/dL (0.1-1.0); Blood Urea Nitrogen 21.0 mg/dL (8-24); CO2, Blood 25.0 mmol/L (21-32); Calcium, Blood 9.0 mg/dL (8.5-10.1); Chloride, Blood 111.0 mmol/L (98-108); Creatinine, Blood 0.74 mg/dL (0.40-1.00); Globulin, Blood 3.4 g/dL (2.2-4.0); Glucose, Blood 152.0 mg/dL (70-99); Potassium, Blood 3.1 mmol/L (3.5-5.5); Sodium, Blood 141.0 mmol/L (136-145); Total Protein, Blood 6.6 g/dL (6.4-8.2)
[2025-09-07] MEDS ORDERED: Ketorolac Tromethamine 15mg Vial IV ONE (06:50)
[2025-09-07] MEDS ORDERED: Ondansetron HCl 2 MG / ML 2ML Vial IV ONE (07:45)
[2025-09-07] MEDS ORDERED: BENZ100A PO (09:33)
[2025-09-07] MEDS ORDERED: DOXY100 PO (09:33)
[2025-09-07 09:45] VITALS: BP 128/84
== END 2025-09-07 09:51 | disposition home or self-care (01) ==
LOC: ER 05:55
PROVIDERS: Emergency Medicine
DX: J98.4 Other disorders of lung (principal); K21.9 Gastro-esophageal reflux disease without esophagitis; I10 Essential (primary) hypertension; G47.33 Obstructive sleep apnea (adult) (pediatric); E78.5 Hyperlipidemia, unspecified; F17.210 Nicotine dependence, cigarettes, uncomplicated; Z79.52 Long term (current) use of systemic steroids; Z79.899 Other long term (current) drug therapy; Z88.5 Allergy status to narcotic agent; Z88.1 Allergy status to other antibiotic agents; Z88.8 Allergy status to other drugs, medicaments and biological substances
CPT/HCPCS: 71046; 71260; 80053; 83880; 84484; 85025; 85379; 93005; 93010; 96374-59; 96375-59; 99285-25; J1885; J2405; Q9967